=== PATIENT | female | born 1955 | race Caucasian/White ===

== ENCOUNTER → 2016-07-17 | Outpatient (CLI) | payer OTHER ==
[~2016-07-17] MED LIST: ALBU1AER9 INH; CALC600T9 PO; EFFSR150 PO; ESOM20CA PO; ETOD500T95 PO; FEXO1TAB49 PO; LEVO50TA6 PO; MISCTAB30 PO; NSNN50; RIZA10TA18 PO; SIMV20TA2 PO; ZOLE5INJ INJ
--- NOTE | 2016-07-17 10:55 | DIAGNOSTIC IMAGING REPORT ---
LUMBAR SPINE CT CT DOSE: 602.08 mGycm HISTORY: Pain neuropathy TECHNIQUE: Multiaxial CT images of the lumbar spine were performed and reformatted in the sagittal and coronal plane without the use of contrast. COMPARISON: 04/17/2015 FINDINGS: There are findings consistent with laminectomy and fusion at L4-L5 and L5-S1. Compared to the prior image intensifier images there appears to be partial bony resorption the superior endplate of L5 and inferior endplate of L4 1 disc spacer is present at this level. There is slight grade 1 anterolisthesis of L5 on S1 unchanged from the prior image intensifier projections. Mild bony resorption about the disc spacer at L5-S1 is also present. The metallic hardware appears to be intact. There is a very subtle loosening about the interpedicular screws at the L4 level. This is not seen at L5 or S1. Vertebral body stature is otherwise normal throughout. All remaining intervertebral disc spaces are well-preserved.. IMPRESSION: 1. Findings consistent with partial bony resorption of the endplates adjacent to the disc spaces L4-L5 and to a lesser extent L5-S1. 2. Potential early loosening of interpedicular screws at L3. 3. Study is otherwise unremarkable on a postoperative basis Electronically signed by: Yuriy Blue M.D. 07/17/2016 10:54 AM Dictated Date/Time: 07/17/2016 10:48 AM
== END | disposition home or self-care (01) ==
LOC: C.CTS 10:22
PROVIDERS: ATTEND Orthopaedic Surgery Orthopaedic Surgery of the Spine
DX: M54.5 Low back pain (principal)

== ENCOUNTER → 2016-08-22 | Outpatient (CLI) | payer OTHER ==
--- NOTE | 2016-08-22 11:42 | DIAGNOSTIC IMAGING REPORT ---
LEFT FOOT MIN 3 VIEWS ROUTINE CLINICAL HISTORY: Acute left foot pain following injury. COMPARISON: None FINDINGS: There is an oblique mildly displaced fracture through the mid to distal shaft and head of the left fifth metatarsal. Tarsometatarsal joints are intact. No additional acute fractures are present. 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 IMPRESSION: Acute mildly displaced oblique fracture of the mid to distal shaft and head of the left fifth metatarsal. Electronically signed by: Joe Ramesh M.D. 08/22/2016 11:40 AM Dictated Date/Time: 08/22/2016 11:39 AM
== END | disposition home or self-care (01) ==
LOC: C.RAD1850 11:24
PROVIDERS: ATTEND Family Medicine
DX: S92.352A Displaced fracture of fifth metatarsal bone, left foot, initial encounter for closed fracture (principal); X58.XXXA Exposure to other specified factors, initial encounter

== ENCOUNTER → 2016-09-25 | Outpatient (CLI) | payer OTHER ==
--- NOTE | 2016-09-25 15:21 | DIAGNOSTIC IMAGING REPORT ---
RIGHT SECOND FINGER 3 VIEWS CLINICAL HISTORY: Right finger pain. FINDINGS: 3 views of the right second finger are obtained. No prior studies are available for comparison at the time of dictation. The skeletal structures appear osteopenic. No fracture is seen. Minimal osteoarthritic change is noted at the distal interphalangeal joint. The second metacarpophalangeal and proximal interphalangeal joints are well-maintained. No erosive disease is identified. Mild soft tissue swelling is seen in the distal finger. IMPRESSION: 1. No acute bony abnormality is seen in the right second finger. 2. Mild osteoarthritic change is noted in the distal interphalangeal joint with associated overlying soft tissue tissue swelling. Electronically signed by: Steve Méndez M.D. 09/25/2016 3:19 PM Dictated Date/Time: 09/25/2016 3:18 PM
== END | disposition home or self-care (01) ==
LOC: C.RAD1850 14:47
PROVIDERS: ATTEND Nurse Practitioner
DX: M79.646 Pain in unspecified finger(s) (principal)

== ENCOUNTER → 2016-10-24 | Outpatient (CLI) | payer OTHER | END | disposition home or self-care (01) | LOC: C.MAMM 12:42 | PROVIDERS: ATTEND Internal Medicine Rheumatology | DX: M85.89 Other specified disorders of bone density and structure, multiple sites (principal) ==

== ENCOUNTER → 2017-05-06 | Outpatient (CLI) | payer OTHER | END | disposition home or self-care (01) | LOC: C.PAPS 15:29 | PROVIDERS: ATTEND Obstetrics & Gynecology | DX: Z01.419 Encounter for gynecological examination (general) (routine) without abnormal findings (principal) ==

== ENCOUNTER 2019-07-02 08:06 | Inpatient (IN) ==
--- NOTE | 2019-06-17 14:21 | PAT Medication Instructions ---
Medication Instructions Date of Service June 17, 2019 Home Medications Medication Instructions Recorded albuterol sulfate 90 mcg/actuation 2 puffs INH Q4H PRN #8.5 gm 10/08/18 aerosol inhaler potassium citrate 10 mEq (1,080 10 meq PO BID #90 tab 03/18/19 mg) tablet,extended release simvastatin 20 mg tablet 20 mg PO HS #90 tab 04/04/19 albuterol sulfate 90 mcg/actuation aerosol inhaler 2 puffs INH Q4H PRN calcium carbonate 500 mg (1,250 mg)-vitamin D3 400 unit tablet 1 tab PO BID hydrocodone 10 mg-chlorpheniramine 8 mg/5 mL oral susp extend.rel 12hr 5 ml PO Q12H PRN mometasone 50 mcg/actuation nasal spray 2 sprays INTRANASAL HS cholecalciferol (vitamin D3) 1,000 units PO HS lisinopril 5 mg PO QAM rizatriptan [Maxalt] 10 mg PO UD PRN venlafaxine [Effexor XR] 150 mg PO HS potassium citrate 10 mEq (1,080 mg) tablet,extended release 10 meq PO BID simvastatin 20 mg tablet 20 mg PO HS celecoxib 100 mg capsule 200 mg PO BID glucosamine-chondroitin [Osteo Bi-Flex] 1 tab PO BID levothyroxine 50 mcg PO QAM pantoprazole [Protonix] 40 mg PO BID fluticasone propionate [Flovent HFA] 2 puff INHALATION BID PRN loratadine 10 mg PO QPM [id number]-adrq-FA-lutein [Multivitamin Women 50 Plus] 1 tab PO QPM trazodone 50 mg PO DAILY PRN ASK your surgeon for instructions celecoxib 100 mg capsule 200 mg PO BID STOP taking 2 weeks before surgery If surgery is within 2 weeks, stop taking as soon as possible. glucosamine-chondroitin [Osteo Bi-Flex] 1 tab PO BID DO NOT take the morning of surgery calcium carbonate 500 mg (1,250 mg)-vitamin D3 400 unit tablet 1 tab PO BID hydrocodone 10 mg-chlorpheniramine 8 mg/5 mL oral susp extend.rel 12hr 5 ml PO Q12H PRN lisinopril 5 mg PO QAM potassium citrate 10 mEq (1,080 mg) tablet,extended release 10 meq PO BID Take morning of surgery With a small sip of water, OTHERWISE NOTHING TO EAT OR DRINK AFTER MIDNIGHT: albuterol sulfate 90 mcg/actuation aerosol inhaler 2 puffs INH Q4H PRN (if needed, and bring with you to the hospital) rizatriptan [Maxalt] 10 mg PO UD PRN levothyroxine 50 mcg PO QAM pantoprazole [Protonix] 40 mg PO BID fluticasone propionate [Flovent HFA] 2 puff INHALATION BID PRN trazodone 50 mg PO DAILY PRN Take evening before surgery albuterol sulfate 90 mcg/actuation aerosol inhaler 2 puffs INH Q4H PRN (if needed) calcium carbonate 500 mg (1,250 mg)-vitamin D3 400 unit tablet 1 tab PO BID hydrocodone 10 mg-chlorpheniramine 8 mg/5 mL oral susp extend.rel 12hr 5 ml PO Q12H PRN (if needed) mometasone 50 mcg/actuation nasal spray 2 sprays INTRANASAL HS cholecalciferol (vitamin D3) 1,000 units PO HS rizatriptan [Maxalt] 10 mg PO UD PRN (if needed) venlafaxine [Effexor XR] 150 mg PO HS potassium citrate 10 mEq (1,080 mg) tablet,extended release 10 meq PO BID simvastatin 20 mg tablet 20 mg PO HS pantoprazole [Protonix] 40 mg PO BID fluticasone propionate [Flovent HFA] 2 puff INHALATION BID PRN (if needed) loratadine 10 mg PO QPM [id number]-ivf-dehm-FA-lutein [Multivitamin Women 50 Plus] 1 tab PO QPM trazodone 50 mg PO DAILY PRN (if needed) Other Notes If you have any questions please call us at [phone] or [phone] or [phone] or [phone]
--- NOTE | 2019-06-18 11:12 | Anesthesiology Consultation ---
Date of Service June 18, 2019 Assessment & Plan (1) Encounter for pre-operative examination: Chart Review Chart Review: Acceptable Risk for Surgery and Patient seen in Pre Admission Testing Teaching & Discussion Instructed NPO after midnight before surgery, except medications with 15 cc of water. Medication instructions provided according to the PAT guidelines. History Surgery Operation Date: 07/02/19 10:25 Proposed Procedures p L2-L3 Decompression and Fusion, L3-L5 Hardware Removal, Spinal Cord Monitoring - Bandar Chapin DO Height/Weight Height: 5 ft 2 in Weight: 79.8 kg Allergies Allergy/AdvReac Type Severity Reaction Status Date / Time Penicillins Allergy Mild SWELLING Verified 06/09/19 14:55 pregabalin Allergy Unknown SWELLING Verified 06/09/19 14:55 Sulfa (Sulfonamide Allergy Unknown HIVES Verified 06/09/19 14:55 Antibiotics) codeine AdvReac Mild PROJECTILE Verified 06/09/19 14:55 VOMITING Medications Home Medications Medication Instructions Recorded Confirmed Last Taken albuterol sulfate 90 mcg/actuation 2 puffs INH Q4H PRN #8.5 gm 10/08/18 06/09/19 04/20/19 aerosol inhaler calcium carbonate 500 mg (1,250 1 tab PO BID 10/08/18 06/09/19 05/20/19 mg)-vitamin D3 400 unit tablet hydrocodone 10 mg-chlorpheniramine 5 ml PO Q12H PRN #120 ml 12/04/18 06/09/19 05/20/19 8 mg/5 mL oral susp extend.rel 12hr mometasone 50 mcg/actuation nasal 2 sprays INTRANASAL HS 12/04/18 06/09/19 05/20/19 spray cholecalciferol (vitamin D3) 1,000 units PO HS 03/11/19 06/09/19 05/20/19 lisinopril 5 mg PO QAM 03/11/19 06/09/19 05/21/19 rizatriptan [Maxalt] 10 mg PO UD PRN 03/11/19 06/09/19 04/20/19 venlafaxine [Effexor XR] 150 mg PO HS 03/11/19 06/09/19 05/20/19 potassium citrate 10 mEq (1,080 10 meq PO BID #90 tab 03/18/19 06/09/19 05/20/19 mg) tablet,extended release simvastatin 20 mg tablet 20 mg PO HS #90 tab 04/04/19 06/09/19 05/20/19 celecoxib 100 mg capsule 200 mg PO BID 04/15/19 06/09/19 05/20/19 glucosamine-chondroitin [Osteo 1 tab PO BID 05/10/19 06/09/19 05/20/19 Bi-Flex] levothyroxine 50 mcg PO QAM 05/10/19 06/09/19 05/21/19 pantoprazole [Protonix] 40 mg PO BID 05/10/19 06/09/19 05/20/19 fluticasone propionate [Flovent 2 puff INHALATION BID PRN 06/09/19 06/09/19 Unknown HFA] loratadine 10 mg PO QPM 06/09/19 06/09/19 Unknown acdmgvjs-vol-gker-FA-lutein 1 tab PO QPM 06/09/19 06/09/19 Unknown [Multivitamin Women 50 Plus] trazodone 50 mg PO DAILY PRN 06/09/19 06/09/19 Unknown Past Medical History Medical History Anxiety and depression Asthma Not using Flovent; using albuterol ~once/month only; season-dependent Environmental allergies GERD (gastroesophageal reflux disease) Hiatal hernia History of anemia Hx of migraines Hyperlipidemia Hypertension Hypothyroidism 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 No daily pain, no pain or problems with opening mouth/jaw. Osteoporosis Peptic ulcer disease Controlled with PPI. Seasonal allergies Spinal stenosis Exercise / Class Metabolic Activity III < 4 Walking/Shop/Light housework (Denies CP or SOB with ambulation on one level; never gets chest pain, +occ SOB with 1 FOS) Past Family History Family History (Updated 06/09/19 @ 15:07 by Margaret Ng RN) Mother Breast cancer Father Myocardial infarction Grandfather (Paternal) No problems noted. Grandmother (Paternal) FHx: diabetes mellitus Grandmother (Maternal) FHx: diabetes mellitus Other Colon cancer Past Surgical History Surgical History Fusion of spine lumbar x2 H/O hand surgery right x2 History of colonoscopy History of esophagogastroduodenoscopy (EGD) History of knee replacement procedure of left knee History of knee replacement procedure of right knee History of repair of rotator cuff right Hx of appendectomy Hx of arthroscopic knee surgery MULTIPLE ON BOTH Hx of LASIK Hx of sinus surgery Hx of tonsillectomy Hx of total hysterectomy Hx of unilateral nephrectomy LEFT - DONATED TO BROTHER Past Anesthesia History No Hx of Anesthesia Complications and No Family Hx of Anesthesia Complications History of PONV No Hx of Motion Sickness and History of PONV (Remote h/o) Social History Smoking Status: Never smoker Do You Dip or Chew Tobacco: No Hx Alcohol Use: No Hx Substance Use: No substance use type: does not use Review of Systems Pt denies any recent chest pain, shortness of breath, palpitations, cough, fever or URI. Physical Exam Vital Signs BP: 144/87 P: 71bpm SPO2: 96% RA T: 97.9 F R: 16 ENMT Mouth: + small oral opening; no dental restorations, no chipped teeth and no loose teeth Thyromental Distance: < 3.5 Finger Breadths (3) Mallampati Class: III Neck normal visual inspection and + short neck; neck extension not limited Respiratory normal respiratory effort Auscultation: lungs clear to auscultation bilaterally Cardiovascular Rate/Rhythm: regular rate and regular rhythm Heart Sounds: no murmur Vessels: no carotid bruit Extremities: no edema Testing Laboratory Results 06/18/19 11:20 06/18/19 11:20 PT 10.3 Seconds (9.0-12.0) 06/18/19 11:20 INR 1.0 (0.9-1.1) 06/18/19 11:20 APTT 29.1 Seconds (21.0-31.0) 06/18/19 11:20 Urine Color Yellow 06/18/19 11:20 Urine Appearance Clear (Clear) 06/18/19 11:20 Urine pH 6.5 (4.5-7.5) 06/18/19 11:20 Ur Specific [place] 1.020 (1.000-1.030) 06/18/19 11:20 Urine Protein Negative (Negative) 06/18/19 11:20 Urine Glucose (UA) Negative (Negative) 06/18/19 11:20 Urine Ketones Negative (Negative) 06/18/19 11:20 Urine Nitrite Negative (Negative) 02/21/20 11:20 Ur Leukocyte Esterase Negative (Negative) 06/18/19 11:20 Blood Type O Positive 06/18/19 11:20 Antibody Screen NEGATIVE 06/18/19 11:20 Electrocardiogram Date: 06/18/19 Findings: + NSR @ (70bpm) Chest X-Ray Date: 06/18/19 Findings: + NAD Echocardiogram Date: 11/17/18 EF: 50-55% Mild concentric LVH. LV systolic function is normal. Grade 1 diastolic dysfunction. No significant valvular disease. Other Testing Event Monitor 10/28-11/26/18 NSR. Symptomatic sinus tachycardia. Symptomatic paroxysmal SVT (8 beats x2). No pauses.
[2019-06-18 12:38] LABS: Appearance Urine Clear (Clear); Bilirubin Urine Negative (Negative); Blood Urine Negative (Negative); Color Urine Yellow; Glucose Urine UA Negative (Negative); Ketones Urine Negative (Negative); Leukocyte Esterase Urine Negative (Negative); Nitrite Urine Negative (Negative); Protein Urine Negative (Negative); Urobilinogen Urine Negative (Negative); pH Urine 6.5 (4.5-7.5)
[2019-06-18 12:39] LABS: Basophils # (auto) 0.03 K/uL (0-0.2); Basophils % (auto) 0.4 %; Eosinophils # (auto) 0.32 K/uL (0-0.5); Eosinophils % (auto) 4.4 %; Hematocrit (blood only) 36.1 % (37-47); Hemoglobin 11.3 g/dL (12.0-16.0); Immature Granulocytes # (auto) 0.02 K/uL (0.00-0.02); Immature Granulocytes % (auto) 0.3 %; Lymphocytes # (auto) 1.99 K/uL (1.2-3.4); Lymphocytes % (auto) 27.5 %; Mean Corpuscular Hemoglobin 29.8 pg (25-34); Mean Corpuscular Hgb Conc 31.3 g/dL (32-36); Mean Corpuscular Volume 95.3 fL (80-100); Mean Platelet Volume 10.6 fL (7.4-10.4); Monocytes # (auto) 0.69 K/uL (0.11-0.59); Monocytes % (auto) 9.5 %; Neutrophils # (auto) 4.18 K/uL (1.4-6.5); Neutrophils % (auto) 57.9 %; Platelet Count 359 K/uL (130-400); RDW Coefficient of Variation 13.1 % (11.5-14.5); Red Blood Count 3.79 M/uL (4.2-5.4); White Blood Count 7.23 K/uL (4.8-10.8)
--- NOTE | 2019-06-18 12:41 | XRay Report ---
TWO VIEW CHEST CLINICAL HISTORY: Preoperative examination. FINDINGS: PA and lateral chest radiographs are compared to study dated 10/28/2014. The cardiomediastina l silhouette is unremarkable. The lungs and pleural spaces are clear. There is no pneumothorax. The skeletal structures are osteopenic. The bony thorax appears intact. Fusion hardware is noted in the l umbar spine. IMPRESSION: No active disease in the chest. ACT 112: Negative or not required by law. Electronically signed by: Steve Méndez M.D. 06/18/2019 12:39 PM
[2019-06-18 12:44] LABS: Partial Thromboplastin Ratio 1.1; Partial Thromboplastin Time 29.1 Seconds (21.0-31.0); Prothrombin Time 10.3 Seconds (9.0-12.0)
[2019-06-18 12:51] LABS: BUN Creatinine Ratio 15.7 (10-20); Calcium 10.1 mg/dl (8.5-10.1); Creatinine Clr Calc Pharmacy 53.5 ml/min; Est GFR (African American) 65.8; Est GFR (Non-African American) 56.7; Potassium 3.9 mmol/L (3.5-5.1)
--- NOTE | 2019-06-18 22:10 | Electrocardiogram Report ---
Test Reason : Blood Pressure : / mmHG Vent. Rate : 070 BPM Atrial Rate : 070 BPM P-R Int : 142 ms QRS Dur : 084 ms QT Int : 368 ms P-R-T Axes : 038 056 062 degrees QTc Int : 397 ms Normal sinus rhythm Normal ECG When compared with ECG of 21-MAY-2017 15:07, No significant change was found Confirmed by Gadiel Zheng ([id number]) on 06/18/2019 10:09:28 PM Referred By: Bandar Chapin Confirmed By:Gadiel Zheng
[~2019-07-02 08:06] MED LIST changes: -ALBU1AER9 INH; -CALC600T9 PO; +CLINDAMYCIN 600 MG/54 ML BAG IV SCH; -EFFSR150 PO; -ESOM20CA PO; -ETOD500T95 PO; -FEXO1TAB49 PO; -LEVO50TA6 PO; +LR 15ML/HR IV SCH; -MISCTAB30 PO; -NSNN50; -RIZA10TA18 PO; -SIMV20TA2 PO; -ZOLE5INJ INJ
[2019-07-02] MEDS ORDERED: MIDAZOLAM HCL 1 MG/ML 2ML VIAL ONE (09:09)
[2019-07-02] MEDS ORDERED: fentaNYL citrate 100 MCG/2 ML VIAL ONE (09:09)
--- NOTE | 2019-07-02 10:35 | History & Physical Bridge Note ---
Date of Service July 02, 2019 History & Physical Bridge Note I have examined the patient, reviewed the History & Physical and in the interval since the performance of the History & Physical I have noted the following changes of clinical significance: no changes noted
--- NOTE | 2019-07-02 10:36 | History & Physical Report ---
Date of Service July 02, 2019 Assessment & Plan (1) Lumbar stenosis with neurogenic claudication: L2-L3 decompression fusion, L3-L5 hardware removal Present on Admission?: Yes History of Present Illness Chief Complaint: Back and bilateral leg pain Primary Care Provider: May Haynes MD This is a 63-year-old female well-known to me the presents with back and bilateral leg pain after failing extensive course of nonoperative care is here for surgical invention. Allergies Allergy/AdvReac Type Severity Reaction Status Date / Time Penicillins Allergy Mild SWELLING Verified 07/02/19 09:02 pregabalin Allergy Unknown SWELLING Verified 07/02/19 09:02 Sulfa (Sulfonamide Allergy Unknown HIVES Verified 07/02/19 09:02 Antibiotics) codeine AdvReac Mild PROJECTILE Verified 07/02/19 09:02 VOMITING Home Medications Home Medications Medication Instructions Recorded Confirmed Type albuterol sulfate 90 mcg/actuation 2 puffs INH Q4H PRN #8.5 gm 10/08/18 07/02/19 Rx aerosol inhaler calcium carbonate 500 mg (1,250 1 tab PO BID 10/08/18 07/02/19 History mg)-vitamin D3 400 unit tablet hydrocodone 10 mg-chlorpheniramine 5 ml PO Q12H PRN #120 ml 12/04/18 07/02/19 History 8 mg/5 mL oral susp extend.rel 12hr mometasone 50 mcg/actuation nasal 2 sprays INTRANASAL HS gm 12/04/18 07/02/19 History spray cholecalciferol (vitamin D3) 1,000 units PO HS 03/11/19 07/02/19 History lisinopril 5 mg PO QAM 03/11/19 07/02/19 History rizatriptan [Maxalt] 10 mg PO UD PRN 03/11/19 07/02/19 History venlafaxine [Effexor XR] 150 mg PO HS 03/11/19 06/23/19 History potassium citrate 10 mEq (1,080 10 meq PO BID #90 tab 03/18/19 07/02/19 Rx mg) tablet,extended release simvastatin 20 mg tablet 20 mg PO HS #90 tab 04/04/19 06/23/19 Rx celecoxib 100 mg capsule 200 mg PO BID 04/15/19 07/02/19 History glucosamine-chondroitin [Osteo 1 tab PO BID 05/10/19 07/02/19 History Bi-Flex] levothyroxine 50 mcg PO QAM 05/10/19 07/02/19 History pantoprazole [Protonix] 40 mg PO BID 05/10/19 07/02/19 History loratadine 10 mg PO QPM 06/09/19 07/02/19 History ukjsawyt-yja-jkhk-FA-lutein 1 tab PO QPM 06/09/19 07/02/19 History [Multivitamin Women 50 Plus] trazodone 50 mg PO DAILY PRN 06/09/19 06/23/19 History Past Med/Surg History Medical History Anxiety and depression Asthma Not using Flovent; using albuterol ~once/month only; season-dependent Environmental allergies GERD (gastroesophageal reflux disease) Hiatal hernia History of anemia Hx of migraines Hyperlipidemia Hypertension Hypothyroidism 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 No daily pain, no pain or problems with opening mouth/jaw. Osteoporosis Peptic ulcer disease Controlled with PPI. Seasonal allergies Spinal stenosis Surgical History Fusion of spine lumbar x2 H/O hand surgery right x2 History of colonoscopy History of esophagogastroduodenoscopy (EGD) History of knee replacement procedure of left knee History of knee replacement procedure of right knee History of repair of rotator cuff right Hx of appendectomy Hx of arthroscopic knee surgery MULTIPLE ON BOTH Hx of LASIK Hx of sinus surgery Hx of tonsillectomy Hx of total hysterectomy Hx of unilateral nephrectomy LEFT - DONATED TO BROTHER Social History Preferred Language: Hungarian Communication Ability: Effective Pool Finisher Required: No Beliefs That Will Affect Care: None marital status: Single Current Living Situation: Spouse and Parent current occupational status: retired Feels Safe at Home: Yes Safety Concerns: Feels Safe At This Time Smoking Status: Never smoker Do You Dip or Chew Tobacco: No ; Second Hand Exposure: No ; Hx Alcohol Use: No Hx Substance Use: No Childhood Exposure to Second-Hand Smoke: No Dental Care, Regularly: Yes Physical Activity Frequency: 1-2 Times per Week Physical Activity Frequency Comment: walking Physical Exam Physical Exam: Patient is alert and oriented neurologically intact. Results & Data Vital Signs (Past 12 Hours) Vital Signs Temp Pulse Resp BP Pulse Ox 07/02/19 09:09 37.1 C 85 18 119/89 97
[2019-07-02] MEDS ORDERED: BUPIVACAINE/EPINEPHRINE 0.5% MPF 1:200,000 10 ML VIAL ONE (10:51)
[2019-07-02] MEDS ORDERED: BACITRACIN INJ 50,000 UNIT VIAL ONE (10:51)
[2019-07-02] MEDS ORDERED: PROMETHAZINE HCL 12.5 MG in SODIUM CHLORIDE 0.9% 50 ML IV PRN ×2 (10:54→14:46)
[2019-07-02] MEDS ORDERED: LABETALOL HCL IV 5 MG/ML 20ML IV PRN (10:54)
[2019-07-02] MEDS ORDERED: ONDANSETRON INJ 2 MG/ML 2 ML VIAL IV PRN ×2 (10:54→14:46)
[2019-07-02] MEDS ORDERED: FLUMAZENIL 0.1 MG/1 ML 10 ML VIAL IV PRN (10:54)
[2019-07-02] MEDS ORDERED: NALOXONE HCL 0.4 MG/1 ML VIAL/CARP IV PRN ×2 (10:54→14:46)
[2019-07-02] MEDS ORDERED: ATROPINE SULFATE 0.1 MG/ML 10ML SYR IV PRN (10:54)
[2019-07-02] MEDS ORDERED: ePHEDrine sulfate 50 MG/ML AMP IV PRN (10:54)
[2019-07-02] MEDS ORDERED: PROPOFOL IV EMULSION 10 MG/ML 20 ML VIAL IV ONE (11:23)
[2019-07-02] MEDS ORDERED: PHENYLEPHRINE 100MCG/ML 5ML SYR ONE (11:23)
[2019-07-02] MEDS ORDERED: DEXAMETHASONE SOD INJ 4 MG/ML VIAL ONE (11:23)
[2019-07-02] MEDS ORDERED: HYDROmorphone INJ 2 MG/ML SYR/VIAL ONE (11:23)
[2019-07-02] MEDS ORDERED: LIDOCAINE HCL 2% 2 ML VIAL/AMP(20MG/ML) INFIL ONE (11:23)
[2019-07-02] MEDS ORDERED: ONDANSETRON INJ 2 MG/ML 2 ML VIAL ONE (11:23)
[2019-07-02] MEDS ORDERED: NEOSTIGMINE METHYLSULFATE 1 MG/ML 10ML VIAL ONE (11:23)
[2019-07-02] MEDS ORDERED: ROCURONIUM BROMIDE 10 MG/ML 5 ML VIAL ONE (11:23)
[2019-07-02] MEDS ORDERED: GLYCOPYRROLATE 0.2 MG/ML VIAL ONE (11:23)
[2019-07-02] MEDS ORDERED: LARYING-O-JET KIT (LTA) ONE (11:23)
[2019-07-02] MEDS ORDERED: FLOSEAL HEMOSTATIC MATRIX 10ML TOP ONE (12:06)
--- NOTE | 2019-07-02 12:41 | Operative Report ---
Post Operative Report Pre & Post Diagnosis Operation Date: 07/02/19 10:25 Pre-Op Diagnosis: Lumbar Intervertebral Disc Displacement Spinal stenosis L2-3 Post-Op Diagnosis: Same I identified the patient and participated in the time-out.: Yes Procedure Operation Date: 07/02/19 10:25 Actual Procedures #1 removal of posterior instrumentation L3-4, L4-5. #2 exploration of fusion L3-4, L4-5. #3 lumbar decompression with bilateral medial facetectomies and foraminotomies L2-3. #4 posterior spinal fusion L2-3. #5 placement posterior instrumentation L2-3. #6 interbody fusion L2-3. #7 placement of peek cage 8 x 22 mm at L2-3. #8 placement locally harvested morselized autograft in the posterior lateral gutters. #9 placement infuse collagen sponge, master graft in the posterior gutters and ostial amp and interbody space. Surgeon Bandar Chapin, [employer] Source Intelligence Analyst Mitch Greco Estimated Blood Loss 200 Findings Consistent with Post-Op Diagnosis Specimens None Indications This is a 63-year-old female known to me the presents with above-mentioned diagnosis after failing extensive course of nonoperative care is here for amezcua rgical intervention. Description of Procedure Patient was met with identified informed consent obtained. Patient was then taken to the operative suite underwent intubation placed in prone position the Temo table on top of the Gilmer frame. All bony prominences well-padded eyes inspected to ensure no external pressure placed upon. This point the lumbar spine is prepped and draped in a sterile fashion. Sharp dissection with the assistance of Bovie cautery was performed down to and exposing the lamina and transverse processes of L to and instrumentation at L3-L4 and L5 bilaterally. Then proceeded move the hardware at L3-L4-L5 bilaterally exploring the fusion mass noting it to be intact. Informed complete laminectomy of L2 including kelley ateral medial facetectomies and foraminotomies addressing severe spinal stenosis. Pedicle screws were then placed in L2 and L3 bilaterally with assistance of fluoroscopy and appropriate size daphne placed. By way of a transforaminal approach on the right complete discectomy was performed endplates curetted to subcortical bleeding bone and a 8 x 22 mm peek cage filled osteo- bone graft tapped in position. The rods were then locked in final position bilaterally. The transverse processes of L2 and L3 burred to subcortical bleeding bone. Infuse collagen sponge master graft local autograft placed in the posterior lateral gutters. 15 round YADI drain inserted. The incision was then closed with 1 Vicryl in the fascia 2-0 Vicryl subcutaneously and 4 Monocryl for final skin closure. Steri-Strip sterile dressings placed. Patient will continue to PACU stable disc. Please note spinal cord monitoring was utilized that the procedure no changes noted. Lastly Mitch record was present throughout the entire procedure involved the patient positioning complex portions of the surgery and final skin closure. I attest to the content of the Intraoperative Record and any orders documented therein. Any exceptions are noted below.
--- NOTE | 2019-07-02 12:52 | Fluoroscopy Report ---
FL lumbar spine 2-3V CLINICAL HISTORY: 63 years-old Female presenting with L2-L3 DECOMP/FUSION, L3-L5 HARDWARE REMOVAL. TECHNIQUE: 2 fluoroscopic image(s) recorded as part of an intraoperative procedure. COMPARISON: MR from 04/16/2019. FINDINGS/IMPRESSION: Posterior bilateral transpedicular screw and daphne fixation at L2-3. Prior transpedicular screws spanni ng from L3 to L5 at the lower lumbar spine has been removed. Interbody spacers again noted from L3-4 through L5-S1 with a new interbody spacer at L2-3. There may be slight retrolisthesis of L2 on L3. La minectomy defects noted from L2 inferiorly. Please see surgical report for further details. Fluoroscopy dosage (mGy): 8.40. Fluoroscopy time: 9.9 seconds. Number or time of high level fluoroscopy (HLF), digital spot, or digital subtraction images: 0. ACT 112: Negative or not required by law. Results electronically sent 07/02/2019 12:51 PM to: Bandar Chapin DO Electronically signed by: Francis Lorenzo M.D. 07/02/2019 12:51 PM
[2019-07-02] MEDS: fentaNYL citrate 100 MCG/2 ML VIAL IV PRN ×4 (13:15→13:31)
[2019-07-02] MEDS: HYDROmorphone INJ 1 MG/ML SYRINGE IV PRN ×4 (13:39→13:54)
[2019-07-02 13:41] LABS: Hematocrit (blood only) 31.5 % (37-47); Hemoglobin 10.1 g/dL (12.0-16.0)
--- NOTE | 2019-07-02 14:29 | Anesthesiology Progress Note ---
Date of Service July 02, 2019 Anesthesia Post Procedure Vital Signs Vital Signs: Temp Pulse Pulse Resp BP BP Pulse Ox 07/02/19 14:24 89 17 108/58 L 100 07/02/19 14:15 87 14 109/83 96 07/02/19 14:05 36.2 C L 84 14 102/72 100 07/02/19 13:55 96 H 18 135/74 99 07/02/19 13:45 90 19 132/82 100 07/02/19 13:35 84 17 129/78 100 07/02/19 13:25 92 H 18 145/99 H 100 07/02/19 13:15 98 H 13 121/83 100 07/02/19 13:06 36.6 C 119 H 20 154/88 H 100 07/02/19 09:09 37.1 C 85 18 119/89 97 Pain Intensity Medial Back: Pain Intensity: 4 Transfer of Care Handoff Completed per policy Notes Mental Status: alert / awake / arousable Patient Amnestic to Procedure: Yes Nausea / Vomiting: adequately controlled Pain: adequately controlled Airway Patency, RR, SpO2: stable & adequate BP & HR: stable & adequate Hydration State: stable & adequate Anesthetic Complications: no major complications apparent
[2019-07-02] MEDS ORDERED: DO NOT ADMINISTER PNEUMOCOCCAL VACCINE PRN (14:46)
[2019-07-02] MEDS ORDERED: LORazepam 0.5 MG TAB PO PRN (14:46)
[2019-07-02] MEDS ORDERED: ACETAMINOPHEN 1,000 MG/100 ML VIAL IV PRN (14:46)
[2019-07-02] MEDS ORDERED: ACETAMINOPHEN 500 MG TAB PO PRN (14:46)
[2019-07-02] MEDS ORDERED: RIZATRIPTAN BENZOATE 10 MG TAB PO PRN (14:46)
[2019-07-02] MEDS ORDERED: SOD PHOSPHATE/SOD BIPHOSPHATE ENEMA 132 ML BTL PR PRN (14:46)
[2019-07-02] MEDS ORDERED: FAMOTIDINE 20 MG TAB PO PRN (14:46)
[2019-07-02] MEDS ORDERED: HYDROmorphone INJ 0.5 MG/0.5 ML SYR IV PRN (14:46)
[2019-07-02] MEDS ORDERED: ALBUTEROL HFA INHALER 8.5 GM INH PRN (14:46)
[2019-07-02] MEDS ORDERED: bisacodyL 10 MG SUPP PR PRN (14:46)
[2019-07-02] MEDS ORDERED: ONDANSETRON 4 MG OD TAB PO PRN (14:46)
[2019-07-02] MEDS ORDERED: HYDROmorphone INJ 1 MG/ML SYRINGE IV PRN (14:46)
[2019-07-02] MEDS ORDERED: MAGNESIUM HYDROXIDE SUSP 30 ML UDC PO PRN (14:46)
[2019-07-02] MEDS ORDERED: METOCLOPRAMIDE HCL INJ 5 MG/ML 2 ML VIAL IV PRN (14:46)
[2019-07-02] MEDS ORDERED: TRAZODONE HCL 50 MG TAB PO PRN (14:46)
[2019-07-02] MEDS ORDERED: LORazepam 0.5 MG/1 ML VIAL IV PRN (14:46)
[2019-07-02] MEDS ORDERED: DO NOT ADMINISTER FLU VACCINE PRN (14:46)
[2019-07-02] MEDS: LACTATED RINGER'S 1,000 ML IV SCH (14:50)
[2019-07-02] MEDS: OXYCODONE HCL IR 5 MG TAB (IMMEDIATE RELEASE) PO PRN ×2 (15:46→22:14)
[2019-07-02] MEDS: KETOROLAC TROMETHAMINE 15 MG/ML VIAL IV SCH ×2 (15:48→22:09)
--- NOTE | 2019-07-02 16:46 | Hospitalist Consultation ---
Date of Consultation July 02, 2019 Assessment & Plan (1) Lumbar stenosis with neurogenic claudication: - S/p lumbar intravertebral disc displacement, spinal stenosis L2-3 with removal of posterior instrumentation previously placed, lumbar decompression with bilateral medial facetectomies and foraminotomies posterior spinal fusion. -Pain management and bowel regimen per primary team -PT/OT -No chemical prophylaxis in the setting of spinal surgery -Would recommend discontinuing Celebrex with patient's recent history of having gastric ulcers and requiring high-dose PPI, consider transition to different pain medication. Patient notes that gabapentin gave her side effects the last time she was on them although has difficulty expressing exactly what it made her feel. (2) Hypertension: -Continue lisinopril 5 mg every morning (3) Hyperlipidemia: -Continue simvastatin 20 mg at bedtime (4) Asthma, mild intermittent: -Albuterol inhaler as needed, well controlled - Cont mometazone 2 sprays daily (5) GERD without esophagitis: -Also with history of peptic ulcer disease, recently had EGD completed in May 2019 which showed resolvent of ulcerations -Continue pantoprazole 40 mg bid -Recommend discontinuation of Celebrex (6) Hypothyroidism: -Continue levothyroxine 50 mcg daily (7) Migraine: -Continue Maxalt as needed (8) Osteoporosis: (9) Vitamin D deficiency: -Continue supplementation with vitamin D and glucosamine chondroitin, pain control as per primary team (10) Anxiety and depression: -Continue Effexor 150 mg at bedtime, trazodone 50 mg daily prn (11) DVT prophylaxis: -Teds, SCDs, no chemical prophylaxis CODE STATUS full code Disposition: Patient likely able to be discharged in 2 days per primary team Thank you for involving us in the care of Ms. Duarte. Please do not hesitate to call with questions or concerns. Medicine will follow along. Supervising Physician Co-Signing Physician Notes I have seen and examined patient with Chana Valle PA-C and I agree with the assessment and plan. History of Present Illness Attending Physician: Bandar Chapin, DO History of Present Illness This is a 63 yo F with PMHx of HTN, HLD, asthma, history of peptic ulcer disease, GERD, hiatal hernia, anemia, migraines, hypothyroidism, spinal stenosis, anxiety and depression who presents for elective lumbar intervertebral disc displacement and spinal stenosis L2-[address] Chapin on 07/02/2019. She is doing well overall. Patient notes that she has been taking Celebrex prior to this for pain relief and also notes was diagnosed with gastric ulcerations in March, where she was placed on high-dose pantoprazole, then had follow-up EGD done which showed improvement of these, she understands that it would be in her best interest to stop Celebrex as well as reduction in pantoprazole after surgery and titrate down on pain medication. She is tolerating oral intake without any difficulty, no nausea, no vomiting. Patient is moving her lower extremities bilaterally without any difficulty, numbness has pretty much resolved. Guzman catheter is in. Patient plans to get up and sit in a chair bedside later this evening. Allergies Allergy/AdvReac Type Severity Reaction Status Date / Time Penicillins Allergy Mild SWELLING Verified 07/02/19 09:02 pregabalin Allergy Unknown SWELLING Verified 07/02/19 09:02 Sulfa (Sulfonamide Allergy Unknown HIVES Verified 07/02/19 09:02 Antibiotics) codeine AdvReac Mild PROJECTILE Verified 07/02/19 09:02 VOMITING Home Medications Home Medications Medication Instructions Recorded Confirmed Type albuterol sulfate 90 mcg/actuation 2 puffs INH Q4H PRN #8.5 gm 10/08/18 07/02/19 Rx aerosol inhaler calcium carbonate 500 mg (1,250 1 tab PO BID 10/08/18 07/02/19 History mg)-vitamin D3 400 unit tablet hydrocodone 10 mg-chlorpheniramine 5 ml PO Q12H PRN #120 ml 12/04/18 07/02/19 History 8 mg/5 mL oral susp extend.rel 12hr mometasone 50 mcg/actuation nasal 2 sprays INTRANASAL HS gm 12/04/18 07/02/19 History spray cholecalciferol (vitamin D3) 1,000 units PO HS 03/11/19 07/02/19 History lisinopril 5 mg PO QAM 03/11/19 07/02/19 History rizatriptan [Maxalt] 10 mg PO UD PRN 03/11/19 07/02/19 History venlafaxine [Effexor XR] 150 mg PO HS 03/11/19 06/23/19 History potassium citrate 10 mEq (1,080 10 meq PO BID #90 tab 03/18/19 07/02/19 Rx mg) tablet,extended release simvastatin 20 mg tablet 20 mg PO HS #90 tab 04/04/19 06/23/19 Rx celecoxib 100 mg capsule 200 mg PO BID 04/15/19 07/02/19 History glucosamine-chondroitin [Osteo 1 tab PO BID 05/10/19 07/02/19 History Bi-Flex] levothyroxine 50 mcg PO QAM 05/10/19 07/02/19 History pantoprazole [Protonix] 40 mg PO BID 05/10/19 07/02/19 History loratadine 10 mg PO QPM 06/09/19 07/02/19 History buihbizr-zks-vwrp-FA-lutein 1 tab PO QPM 06/09/19 07/02/19 History [Multivitamin Women 50 Plus] trazodone 50 mg PO DAILY PRN 06/09/19 06/23/19 History Patient History Medical History Anxiety and depression Asthma Not using Flovent; using albuterol ~once/month only; season-dependent Environmental allergies GERD (gastroesophageal reflux disease) Hiatal hernia History of anemia Hx of migraines Hyperlipidemia Hypertension Hypothyroidism 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 No daily pain, no pain or problems with opening mouth/jaw. Osteoporosis Peptic ulcer disease Controlled with PPI. 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 Beliefs That Will Affect Care: None marital status: Single Current Living Situation: Spouse and Parent current occupational status: retired Feels Safe at Home: Yes Safety Concerns: Feels Safe At This Time Smoking Status: Never smoker Do You Dip or Chew Tobacco: No ; Second Hand Exposure: No ; Hx Alcohol Use: No Hx Substance Use: No Childhood Exposure to Second-Hand Smoke: No Dental Care, Regularly: Yes Physical Activity Frequency: 1-2 Times per Week Physical Activity Frequency Comment: walking Review of Systems Review of Systems: Constitutional: No fever, sweats or chills Eyes: No diplopia, no worsening or blurred vision ENT: normal hearing, no trouble swallowing Respiratory: No cough, sputum, dyspnea at rest or on exertion Cardiovascular: No chest pain, tightness or palpitations Abdomen: No pain, nausea, vomiting, diarrhea or constipation Musculoskeletal: + Minor back pain, well controlled otherwise no joint pain, calf pain, swelling Neurologic: No weakness, numbness/tingling, or balance problems Psychiatric: No anxiety or depression Skin: No rash or itch Physical Exam Physical Exam: General: awake, alert, no apparent distress, + overweight Head: Normocephalic, atraumatic ENT: PERRL, EOMI, no pharyngeal exudate, mucous membranes moist Chest: Clear to auscultation, on room air, no adventitious breath sounds Cardiac: Regular rate and rhythm, no murmur, no JVD, normal peripheral pulses, good capillary refill Abdominal: NABS x 4 quadrants, soft, nondistended, nontender to palpation, no rebound, guarding or tenderness, + Guzman cath in place draining clear yellow urine Extremities: Normal inspection, no peripheral edema or erythema, calfs nontender to palpation Psych: Normal mood and affect Neuro: AAO x 3, no gross motor deficits, speech is clear, no peripheral sensory deficits Skin: no rash or erythema Results & Data ([facility]) Vital Signs (Past 12 Hours) Vital Signs Temp Pulse Pulse Resp BP BP Pulse Ox 07/02/19 16:21 36.8 C 87 16 103/67 91 07/02/19 15:30 36.9 C 89 16 98/57 L 90 07/02/19 15:00 37.1 C 93 H 16 105/69 99 07/02/19 14:35 37.2 C 92 H 16 109/73 98 07/02/19 14:24 89 17 108/58 L 100 07/02/19 14:15 87 14 109/83 96 07/02/19 14:05 36.2 C L 84 14 102/72 100 07/02/19 13:55 96 H 18 135/74 99 07/02/19 13:45 90 19 132/82 100 07/02/19 13:35 84 17 129/78 100 07/02/19 13:25 92 H 18 145/99 H 100 07/02/19 13:15 98 H 13 121/83 100 07/02/19 13:06 36.6 C 119 H 20 154/88 H 100 07/02/19 09:09 37.1 C 85 18 119/89 97 PG Care Time/CCT Total # of Minutes Spent Total Time Spent with Patient: Total time spent is greater than 50% in coordination of care (as documented) at patient's floor/unit and/or counseling patient: Coding Level of Care Code 30471 Inpt Consult Level 3 Diagnoses Lumbar stenosis with neurogenic claudication M48.062 Hypertension I10 Hyperlipidemia E78.5 Asthma, mild intermittent J45.20 GERD without esophagitis K21.9 Hypothyroidism E03.9 Migraine G43.909 Osteoporosis M81.0 Vitamin D deficiency E55.9 Anxiety and depression F41.9; F32.9 DVT prophylaxis Z29.9
[2019-07-02] MEDS: CLINDAMYCIN 600 MG in DEXTROSE 5% 50 ML IV SCH (19:29)
[2019-07-02] MEDS: FLUTICASONE PROPIONATE NA SPR 16 GM BTL SCH (20:48)
[2019-07-02] MEDS: DOCUSATE SODIUM/SENNA 50/8.6MG TAB PO SCH (20:49)
[2019-07-02] MEDS: PANTOprazole 40 MG TAB PO SCH (20:49)
[2019-07-02] MEDS: CEROVITE ADV FORMULA TAB PO SCH (20:49)
[2019-07-02] MEDS: POTASSIUM CITRATE 10 MEQ TAB PO SCH (20:49)
[2019-07-02] MEDS: LORATADINE 10 MG TAB PO SCH (20:49)
[2019-07-02] MEDS: VENLAFAXINE HCL XR 150 MG CAPXR PO SCH (20:49)
[2019-07-02] MEDS: CALCIUM 600MG + VIT D 400 IU TAB PO SCH (20:50)
[2019-07-02] MEDS: CHOLECALCIFEROL 1,000 UNITS 25 MCG TAB PO SCH (20:50)
[2019-07-02] MEDS: SIMVASTATIN 20 MG TAB PO SCH (20:50)
[2019-07-02] MEDS: ALUMINUM/MAGNESIUM SUSP 30 ML UDC PO PRN (22:14)
[2019-07-03] MEDS: LACTATED RINGER'S 1,000 ML IV SCH (00:59)
[2019-07-03] MEDS: KETOROLAC TROMETHAMINE 15 MG/ML VIAL IV SCH ×2 (03:13→10:26)
[2019-07-03] MEDS: CLINDAMYCIN 600 MG in DEXTROSE 5% 50 ML IV SCH (03:13)
[2019-07-03] MEDS: LEVOTHYROXINE SODIUM 50 MCG TABLET PO SCH (05:53)
[2019-07-03] MEDS: POLYETHYLENE (MIRALAX) 17 GM PACK PO SCH ×4 (05:53→23:08)
[2019-07-03 06:12] LABS: Basophils # (auto) 0.01 K/uL (0-0.2); Basophils % (auto) 0.1 %; Hematocrit (blood only) 25.8 % (37-47); Hemoglobin 8.4 g/dL (12.0-16.0); Immature Granulocytes # (auto) 0.05 K/uL (0.00-0.02); Immature Granulocytes % (auto) 0.4 %; Lymphocytes # (auto) 1.51 K/uL (1.2-3.4); Lymphocytes % (auto) 11.1 %; Mean Corpuscular Hemoglobin 29.9 pg (25-34); Mean Corpuscular Hgb Conc 32.6 g/dL (32-36); Mean Corpuscular Volume 91.8 fL (80-100); Mean Platelet Volume 9.3 fL (7.4-10.4); Monocytes # (auto) 1.05 K/uL (0.11-0.59); Monocytes % (auto) 7.7 %; Neutrophils # (auto) 10.96 K/uL (1.4-6.5); Neutrophils % (auto) 80.7 %; Platelet Count 303 K/uL (130-400); RDW Coefficient of Variation 12.9 % (11.5-14.5); RDW Standard Deviation 43.7 fL (36.4-46.3); Red Blood Count 2.81 M/uL (4.2-5.4); White Blood Count 13.58 K/uL (4.8-10.8)
[2019-07-03 06:48] LABS: BUN Creatinine Ratio 19.6 (10-20); Calcium 8.6 mg/dl (8.5-10.1); Creatinine Clr Calc Pharmacy 46.9 ml/min; Est GFR (African American) 56.4; Est GFR (Non-African American) 48.7; Potassium 4.6 mmol/L (3.5-5.1)
--- NOTE | 2019-07-03 08:54 | Orthopedic Progress Note ---
Date of Service July 03, 2019 Assessment & Plan (1) Lumbar stenosis with neurogenic claudication: We will continue physical therapy today monitor her YADI output anticipate discharge home in the next few days. Present on Admission?: Yes Admission and Anticipated Discharge Date Admission Date: July 02, 2019 Subjective Patient's back pain is controlled leg symptoms markedly improved. Physical Exam Physical Exam: Patient is in the chair at the bedside is good strength testing appears comfortable. Results & Data ([facility]) Vital Signs (Past 12 Hours) Vital Signs Temp Pulse Pulse Resp BP BP Pulse Ox 07/03/19 07:37 36.9 C 80 16 144/79 H 97 07/03/19 02:48 36.9 C 94 H 15 103/69 96 07/02/19 23:08 36.8 C 78 15 109/70 97
[2019-07-03] MEDS: POTASSIUM CITRATE 10 MEQ TAB PO SCH ×2 (08:56→20:05)
[2019-07-03] MEDS: CALCIUM 600MG + VIT D 400 IU TAB PO SCH ×2 (08:56→20:05)
[2019-07-03] MEDS: lisinopriL 5 MG TAB PO SCH (08:56)
[2019-07-03] MEDS: PANTOprazole 40 MG TAB PO SCH ×2 (08:56→20:04)
[2019-07-03] MEDS: OXYCODONE HCL IR 5 MG TAB (IMMEDIATE RELEASE) PO PRN ×3 (09:02→20:01)
[2019-07-03] MEDS ORDERED: SUCRALFATE 1 GM/10 ML UDC PO PRN (14:22)
[2019-07-03] MEDS: TRAMADOL HCL 50 MG TABLET PO PRN ×2 (15:29→23:10)
--- NOTE | 2019-07-03 16:47 | Hospitalist Progress Note ---
Date of Service July 03, 2019 Assessment & Plan (1) Lumbar stenosis with neurogenic claudication: - S/P lumbar intravertebral disc displacement, spinal stenosis L2-3 with removal of posterior instrumentation previously placed, lumbar decompression with bilateral medial facetectomies and foraminotomies posterior spinal fusion. -Pain management and bowel regimen per primary team -Continue PT/OT -No chemical prophylaxis in the setting of spinal surgery -Would recommend discontinuing Celebrex with patient's recent history of having gastric ulcers and requiring high-dose PPI, consider transition to different pain medication. Patient notes that gabapentin gave her side effects the last time she was on them although has difficulty expressing exactly what it made her feel. (2) Anemia: - Appears normocytic - possibly of chronic disease; also S/P nephrectomy - Baseline appears around 10 - currently at 8.4 so some may be acute blood loss from surgical losses and hemodilution - Asymptomatic - will recheck labs in AM - Continue supplementation - intolerant to oral iron (3) Hyponatremia: - Asymptomatic - Na 128 on AM labs - She reports she had about 3 full hospital water cups prior to my visit - maybe some dilutional effects - will check AM labs (4) Hypertension: - STABLE -Continue lisinopril 5 mg every morning (5) Hyperlipidemia: -Continue simvastatin 20 mg at bedtime (6) Asthma, mild intermittent: -Albuterol inhaler as needed, well controlled - Cont mometazone 2 sprays daily (7) GERD without esophagitis: -Also with history of peptic ulcer disease, recently had EGD completed in May 2019 which showed resolvent of ulcerations -Continue pantoprazole 40 mg bid -Recommend discontinuation of Celebrex (8) Hypothyroidism: -Continue levothyroxine 50 mcg daily (9) Migraine: -Continue Maxalt as needed (10) Vitamin D deficiency: -Continue supplementation with vitamin D and glucosamine chondroitin, pain control as per primary team (11) Anxiety and depression: -Continue Effexor 150 mg at bedtime, trazodone 50 mg daily prn (12) DVT prophylaxis: -Teds, SCDs, no chemical prophylaxis Thank you for involving us in the care of Ms. Duarte. Please do not hesitate to call with questions or concerns. Medicine will follow along. Admission and Anticipated Discharge Date Admission Date: July 02, 2019 Subjective She reports feeling well today. States this is the best she has felt after a back surgery. Reports her pain is under control and is hoping to return home tomorrow. She does endorse some acid reflux last night and did place Carafate PRN. She states she had some Maalox and that seemed to help. She reports long standing anemia but denies any acute symptoms. Hemodynamically stable. Verbalizes no other complaints. Review of Systems Constitutional: no fever and no chills Respiratory: no cough and no dyspnea Cardiovascular: no chest pain, no palpitations and no lightheadedness Gastrointestinal: no abdominal pain, no nausea, no vomiting, no constipation and no diarrhea/loose stools Genitourinary: no dysuria Musculoskeletal: no back pain Integumentary: no rash Physical Exam Constitutional: WD/WN, vitals as above no acute distress Eyes: + anicteric sclerae ENMT: Ears: no hearing impairment Neck: trachea midline Respiratory: normal respiratory effort, lungs clear to auscultation Cardiovascular: RRR, no murmur, no edema Gastrointestinal (Abdomen): Inspection/Auscultation: normal bowel sounds Percussion/Palpation: abdomen soft; abdomen nontender Musculoskeletal: Head/Neck/Chest: normocephalic and head atraumatic Skin: no rashes, warm and dry Neurologic: moves all extremities Psychiatric: A+Ox3, euthymic affect Results & Data ([facility]) Vital Signs (Past 12 Hours) Vital Signs Temp Pulse Pulse Resp BP BP Pulse Ox 07/03/19 16:31 106/63 07/03/19 15:22 36.7 C 90 18 84/58 L 98 07/03/19 11:42 37.0 C 85 16 116/76 97 07/03/19 07:37 36.9 C 80 16 144/79 H 97 PG Care Time/CCT Total # of Minutes Spent Total Time Spent with Patient: Total time spent is greater than 50% in coordination of care (as documented) at patient's floor/unit and/or counseling patient: Coding Level of Care Code 01070 Inpt Consult Level 2 Diagnoses Lumbar stenosis with neurogenic claudication M48.062 Anemia D64.9 Hyponatremia E87.1 Hypertension I10 Hyperlipidemia E78.5 Asthma, mild intermittent J45.20 GERD without esophagitis K21.9 Hypothyroidism E03.9 Migraine G43.909 Vitamin D deficiency E55.9 Anxiety and depression F41.9; F32.9 DVT prophylaxis Z29.9
[2019-07-03] MEDS: DOCUSATE SODIUM/SENNA 50/8.6MG TAB PO SCH (20:04)
[2019-07-03] MEDS: VENLAFAXINE HCL XR 150 MG CAPXR PO SCH (20:05)
[2019-07-03] MEDS: SIMVASTATIN 20 MG TAB PO SCH (20:05)
[2019-07-03] MEDS: CHOLECALCIFEROL 1,000 UNITS 25 MCG TAB PO SCH (20:05)
[2019-07-03] MEDS: CEROVITE ADV FORMULA TAB PO SCH (20:05)
[2019-07-03] MEDS: FLUTICASONE PROPIONATE NA SPR 16 GM BTL SCH (20:06)
[2019-07-03] MEDS: LORATADINE 10 MG TAB PO SCH (20:06)
[2019-07-03] MEDS: ALUMINUM/MAGNESIUM SUSP 30 ML UDC PO PRN (23:07)
[2019-07-04] MEDS: OXYCODONE HCL IR 5 MG TAB (IMMEDIATE RELEASE) PO PRN ×3 (04:53→20:09)
[2019-07-04 05:54] LABS: Hematocrit (blood only) 25.3 % (37-47); Hemoglobin 8.2 g/dL (12.0-16.0); Mean Corpuscular Hgb Conc 32.4 g/dL (32-36); Mean Corpuscular Volume 92.7 fL (80-100); Platelet Count 295 K/uL (130-400); RDW Coefficient of Variation 13.2 % (11.5-14.5); RDW Standard Deviation 44.5 fL (36.4-46.3); Red Blood Count 2.73 M/uL (4.2-5.4); White Blood Count 8.89 K/uL (4.8-10.8)
[2019-07-04] MEDS: POLYETHYLENE (MIRALAX) 17 GM PACK PO SCH ×4 (06:24→23:33)
[2019-07-04] MEDS: LEVOTHYROXINE SODIUM 50 MCG TABLET PO SCH (06:24)
[2019-07-04 06:32] LABS: BUN Creatinine Ratio 19.4 (10-20); Calcium 8.7 mg/dl (8.5-10.1); Creatinine Clr Calc Pharmacy 53.7 ml/min; Est GFR (African American) 66.5; Est GFR (Non-African American) 57.4; Potassium 4.5 mmol/L (3.5-5.1)
[2019-07-04] MEDS: CALCIUM 600MG + VIT D 400 IU TAB PO SCH ×2 (08:26→20:05)
[2019-07-04] MEDS: POTASSIUM CITRATE 10 MEQ TAB PO SCH ×2 (08:26→20:05)
[2019-07-04] MEDS: PANTOprazole 40 MG TAB PO SCH ×2 (08:26→20:05)
[2019-07-04] MEDS: lisinopriL 5 MG TAB PO SCH (08:26)
--- NOTE | 2019-07-04 11:32 | Orthopedic Progress Note ---
Date of Service July 04, 2019 Assessment & Plan (1) Lumbar stenosis with neurogenic claudication: At this time we will continue physical therapy monitor her YADI output anticipate discharge home tomorrow. Present on Admission?: Yes Admission and Anticipated Discharge Date Admission Date: July 02, 2019 Subjective Back pain controlled leg symptoms improved Physical Exam Physical Exam: Patient is good strength testing appears comfortable. Results & Data ([facility]) Vital Signs (Past 12 Hours) Vital Signs Temp Pulse Pulse Resp BP BP Pulse Ox 07/04/19 08:23 36.8 C 78 16 106/70 96 07/03/19 23:20 37.1 C 90 15 105/70 99
--- NOTE | 2019-07-04 13:21 | Hospitalist Progress Note ---
Date of Service July 04, 2019 Assessment & Plan (1) Lumbar stenosis with neurogenic claudication: - S/P lumbar intravertebral disc displacement, spinal stenosis L2-3 with removal of posterior instrumentation previously placed, lumbar decompression with bilateral medial facetectomies and foraminotomies posterior spinal fusion. -Pain management and bowel regimen per primary team -Continue PT/OT -No chemical prophylaxis in the setting of spinal surgery -Would recommend discontinuing Celebrex with patient's recent history of having gastric ulcers and requiring high-dose PPI, consider transition to different pain medication. Patient notes that gabapentin gave her side effects the last time she was on them although has difficulty expressing exactly what it made her feel. (2) Anemia: - Appears normocytic - possibly of chronic disease; also S/P nephrectomy - Baseline appears around 10 - currently at 8.2 so some may be acute blood loss from surgical losses and hemodilution - Asymptomatic - recheck in AM - Continue supplementation - intolerant to oral iron (3) Hyponatremia: - Asymptomatic - Na 128 on 07/02 now at 132 -- Maybe related some to increased fluid intake vs Effexor causing an SIADH? (4) Hypertension: - STABLE -Continue lisinopril 5 mg every morning (5) Hyperlipidemia: -Continue simvastatin 20 mg at bedtime (6) Asthma, mild intermittent: -Albuterol inhaler as needed, well controlled - Cont mometazone 2 sprays daily (7) GERD without esophagitis: -Also with history of peptic ulcer disease, recently had EGD completed in May 2019 which showed resolvution of ulcerations -Continue pantoprazole 40 mg bid -Recommend discontinuation of Celebrex (8) Hypothyroidism: -Continue levothyroxine 50 mcg daily (9) Migraine: -Continue Maxalt as needed (10) Vitamin D deficiency: -Continue supplementation with vitamin D and glucosamine chondroitin, pain control as per primary team (11) Anxiety and depression: -Continue Effexor 150 mg at bedtime, trazodone 50 mg daily prn (12) DVT prophylaxis: -Teds, SCDs, no chemical prophylaxis Thank you for involving us in the care of Ms. Duarte. Please do not hesitate to call with questions or concerns. Medicine will follow along. Admission and Anticipated Discharge Date Admission Date: July 02, 2019 Subjective Reports feeling okay today. Slept well but a little tired today. Has been ambulating and plans to walk the halls again this afternoon. Having a bit more pain today but the medications seem to be controlling this. Her hemoglobin is 8.2 so slightly lower then yesterday however no CP, SOB, dizziness. Hemodynamically stable. She anticipates going home tomorrow depending on her drain output. Review of Systems Constitutional: + fatigue; no fever and no chills Respiratory: no cough and no dyspnea Cardiovascular: no chest pain and no lightheadedness Gastrointestinal: no abdominal pain, no nausea, no vomiting, no constipation and no diarrhea/loose stools Genitourinary: no dysuria Musculoskeletal: + back pain (controlled with pain medications) Integumentary: no rash Physical Exam Constitutional: WD/WN, vitals as above no acute distress Eyes: + anicteric sclerae ENMT: Ears: no hearing impairment Neck: trachea midline Respiratory: normal respiratory effort, lungs clear to auscultation Cardiovascular: RRR, no murmur, no edema Gastrointestinal (Abdomen): Inspection/Auscultation: normal bowel sounds Percussion/Palpation: abdomen soft; abdomen nontender Musculoskeletal: Head/Neck/Chest: normocephalic and head atraumatic Skin: no rashes, warm and dry Neurologic: moves all extremities Psychiatric: A+Ox3, euthymic affect Results & Data ([facility]) Vital Signs (Past 12 Hours) Vital Signs Temp Pulse Resp BP Pulse Ox 07/04/19 08:23 36.8 C 78 16 106/70 96 PG Care Time/CCT Total # of Minutes Spent Total Time Spent with Patient: Total time spent is greater than 50% in coordination of care (as documented) at patient's floor/unit and/or counseling patient: Coding Level of Care Code 64651 Inpt Consult Level 2 Diagnoses Lumbar stenosis with neurogenic claudication M48.062 Anemia D64.9 Hyponatremia E87.1 Hypertension I10 Hyperlipidemia E78.5 Asthma, mild intermittent J45.20 GERD without esophagitis K21.9 Hypothyroidism E03.9 Migraine G43.909 Vitamin D deficiency E55.9 Anxiety and depression F41.9; F32.9 DVT prophylaxis Z29.9
[2019-07-04] MEDS: TRAMADOL HCL 50 MG TABLET PO PRN (15:23)
[2019-07-04] MEDS: VENLAFAXINE HCL XR 150 MG CAPXR PO SCH (20:04)
[2019-07-04] MEDS: CHOLECALCIFEROL 1,000 UNITS 25 MCG TAB PO SCH (20:04)
[2019-07-04] MEDS: FLUTICASONE PROPIONATE NA SPR 16 GM BTL SCH (20:04)
[2019-07-04] MEDS: SIMVASTATIN 20 MG TAB PO SCH (20:05)
[2019-07-04] MEDS: LORATADINE 10 MG TAB PO SCH (20:05)
[2019-07-04] MEDS: DOCUSATE SODIUM/SENNA 50/8.6MG TAB PO SCH (20:05)
[2019-07-04] MEDS: CEROVITE ADV FORMULA TAB PO SCH (20:06)
[2019-07-05] MEDS: LEVOTHYROXINE SODIUM 50 MCG TABLET PO SCH (06:15)
[2019-07-05] MEDS: POLYETHYLENE (MIRALAX) 17 GM PACK PO SCH ×2 (06:15→12:17)
[2019-07-05] MEDS: OXYCODONE HCL IR 5 MG TAB (IMMEDIATE RELEASE) PO PRN ×2 (07:05→13:05)
--- NOTE | 2019-07-05 07:41 | Anesthesiology Progress Note ---
Date of Service July 05, 2019 Anesthesia Post Procedure Vital Signs Vital Signs: Temp Pulse Pulse Resp BP BP Pulse Ox 07/04/19 23:45 37.1 C 86 18 112/65 98 07/04/19 15:20 37.2 C 81 15 98/66 L 93 07/04/19 08:23 36.8 C 78 16 106/70 96 Notes Mental Status: alert / awake / arousable and participated in evaluation Patient Amnestic to Procedure: Yes Nausea / Vomiting: adequately controlled Pain: adequately controlled Airway Patency, RR, SpO2: stable & adequate BP & HR: stable & adequate Hydration State: stable & adequate Anesthetic Complications: no major complications apparent
[2019-07-05] MEDS: lisinopriL 5 MG TAB PO SCH (08:00)
[2019-07-05] MEDS: POTASSIUM CITRATE 10 MEQ TAB PO SCH (08:01)
[2019-07-05] MEDS: CALCIUM 600MG + VIT D 400 IU TAB PO SCH (08:01)
[2019-07-05] MEDS: PANTOprazole 40 MG TAB PO SCH (08:01)
--- NOTE | 2019-07-05 11:30 | Hospitalist Progress Note ---
Date of Service July 05, 2019 Assessment & Plan (1) Lumbar stenosis with neurogenic claudication: - S/P lumbar intravertebral disc displacement, spinal stenosis L2-3 with removal of posterior instrumentation previously placed, lumbar decompression with bilateral medial facetectomies and foraminotomies posterior spinal fusion. -Pain management and bowel regimen per primary team -Continue PT/OT -No chemical prophylaxis in the setting of spinal surgery -Would recommend discontinuing Celebrex with patient's recent history of having gastric ulcers and requiring high-dose PPI, consider transition to different pain medication. Patient notes that gabapentin gave her side effects the last time she was on them although has difficulty expressing exactly what it made her feel. (2) Anemia: - Appears normocytic - possibly of chronic disease; also S/P nephrectomy - Baseline appears around 10 - currently at 8.2 so some may be acute blood loss from surgical losses and hemodilution - Asymptomatic - Continue supplementation - intolerant to oral iron (3) Hyponatremia: - Asymptomatic - Na 128 on 07/02 now at 132 -- Maybe related some to increased fluid intake vs Effexor causing an SIADH? (4) Hypertension: - STABLE -Continue lisinopril 5 mg every morning (5) Hyperlipidemia: -Continue simvastatin 20 mg at bedtime (6) Asthma, mild intermittent: -Albuterol inhaler as needed, well controlled - Cont mometazone 2 sprays daily (7) GERD without esophagitis: -Also with history of peptic ulcer disease, recently had EGD completed in May 2019 which showed resolvution of ulcerations -Continue pantoprazole 40 mg bid -Recommend discontinuation of Celebrex (8) Hypothyroidism: -Continue levothyroxine 50 mcg daily (9) Migraine: -Continue Maxalt as needed (10) Vitamin D deficiency: -Continue supplementation with vitamin D and glucosamine chondroitin, pain control as per primary team (11) Anxiety and depression: -Continue Effexor 150 mg at bedtime, trazodone 50 mg daily prn (12) DVT prophylaxis: -Teds, SCDs, no chemical prophylaxis Thank you for involving us in the care of Ms. Duarte. Please do not hesitate to call with questions or concerns. Plan for discharge today per primary Admission and Anticipated Discharge Date Admission Date: July 02, 2019 Supervising Physician Co-Signing Physician Notes Attending Attestation - Chart reviewed in detail, care plan d/w SHAYY Lares. I agree w/ the spring components of her documentation. s/p lumbar back surgery. Doing well from orthopedic standpoint. Vitals stable. Na 132 on 07/03 -- strongly recommend repeat BMP within 5 days for stability. Agree w/ d/c of celebrex in light of upper GI history. Other medical problems stable. Ruslan Gates MD Subjective Reports feeling better today then yesterday. Pain is controlled. Just has not moved her bowels and beginning to feel a little more bloated. Utilizing bowel regimen and ambulating. Tolerating diet without issue, no N/V. She denies lightheadedness/dizziness, CP, SOB. She verbalizes no other complaints. Review of Systems Constitutional: no fever and no chills Respiratory: no cough and no dyspnea Cardiovascular: no chest pain, no palpitations, no lightheadedness, no edema and no calf pain Gastrointestinal: + bloating; no abdominal pain, no nausea and no vomiting Genitourinary: no dysuria Musculoskeletal: no back pain Integumentary: no rash Neurologic: no tingling and no numbness Physical Exam Constitutional: WD/WN, vitals as above no acute distress Eyes: + anicteric sclerae ENMT: Ears: no hearing impairment Neck: trachea midline Respiratory: normal respiratory effort, lungs clear to auscultation Cardiovascular: RRR, no murmur, no edema Gastrointestinal (Abdomen): Inspection/Auscultation: normal bowel sounds Percussion/Palpation: abdomen soft; abdomen nontender Musculoskeletal: Head/Neck/Chest: normocephalic and head atraumatic + YADI present with serosang fluid Skin: no rashes, warm and dry Neurologic: moves all extremities Psychiatric: A+Ox3, euthymic affect Results & Data ([facility]) Vital Signs (Past 12 Hours) Vital Signs Temp Pulse Pulse Resp BP BP Pulse Ox 07/05/19 08:56 37.2 C 85 86 18 98/66 L 140/80 96 07/05/19 07:58 37.2 C 85 18 140/80 96 07/04/19 23:45 37.1 C 86 18 112/65 98 PG Care Time/CCT Total # of Minutes Spent Total Time Spent with Patient: Total time spent is greater than 50% in coordination of care (as documented) at patient's floor/unit and/or counseling patient: Coding Level of Care Code 69823 Inpt Consult Level 2 Diagnoses Lumbar stenosis with neurogenic claudication M48.062 Anemia D64.9 Hyponatremia E87.1 Hypertension I10 Hyperlipidemia E78.5 Asthma, mild intermittent J45.20 GERD without esophagitis K21.9 Hypothyroidism E03.9 Migraine G43.909 Vitamin D deficiency E55.9 Anxiety and depression F41.9; F32.9 DVT prophylaxis Z29.9
--- NOTE | 2019-07-05 12:06 | Discharge Summary ---
Date of Service July 05, 2019 Admission HPI Per Admitting Provider This is a 63-year-old female well-known to me the presents with back and bilateral leg pain after failing extensive course of nonoperative care is here for surgical invention. Principal Diagnosis Lumbar spinal stenosis with neurogenic claudication Discharge Data Allergies Allergy/AdvReac Type Severity Reaction Status Date / Time Penicillins Allergy Mild SWELLING Verified 07/02/19 09:02 pregabalin Allergy Unknown SWELLING Verified 07/02/19 09:02 Sulfa (Sulfonamide Allergy Unknown HIVES Verified 07/02/19 09:02 Antibiotics) codeine AdvReac Mild PROJECTILE Verified 07/02/19 09:02 VOMITING Consultations 07/02/19 14:46 Consult Case Management - Discharge Planning Routine Consult Hospitalist Routine Procedures Performed Operation Date: 07/02/19 10:25 Actual Procedures p L2-L3 Decompression and Fusion, Spinal Cord Monitoring(Not Applicable) - Bandar Chapin DO s L3-L5 Hardware Removal(Not Applicable) - Bandar Chapin DO Ordered Studies 07/02/19 10:25 FL fluoroscopy <1hr Routine FL lumbar spine 2-3V Routine Hospital Course (1) Lumbar stenosis with neurogenic claudication: Patient with lumbar decompression fusion tolerated well second orthopedic for postoperative. Postop day 1 she was up and ambulating progressed to postop day 2 on postop day #3 YADI drainage or decreased appropriately. Bowels working well. Excellent strength testing. Subsequent discharge home. Discharge orders and instructions from the chart for further review. Total Time Total Time Spent Total Time Spent (In Minutes): 20 minutes Discharge Plan Discharge Items Patient Disposition: Home - Self-Care Reason For Visit: LUMBAR INTERVERTEBRAL DISC DISPLACEMENT Discharge Diagnosis: Lumbar spinal stenosis with neurogenic claudication Activity: As commented below Non-emergency contact: Primary Care Provider Call non-emergency contact if: you have any medication questions Follow-up/Referrals: May Haynes MD [Primary Care Provider] - Diet: Regular Addtl Attending Provider Instructions: ACTIVITY RECOMMENDATIONS: SELF CARE INSTRUCTIONS AFTER THORACIC/LUMBAR FUSIONS 1. You may walk to your tolerance. It is good exercise for your legs and back. Expect some back and intermittent leg aches and pains. 2. You may perform "counter-top" level activities (make a sandwich, dc with a project, etc.). 3. No bending or lifting of more than 10 pounds or back twisting of any nature (roll like a log when turning in bed). 4. You may ride in a car for 20-30 minutes at a time. No driving until after your first visit with your doctor. 5. Frequent changes of position and restricting sitting to 30 minutes at a time will help limit the amount of back spasms and stiffness you may experience. 6. You may discontinue the use of ambulatory aids (cane, crutches, etc.) once your strength and confidence allow. 7. You may sanitarian inspector the shower and let water strike your incision when you arrive home at least once daily. Do not take a tub bath, sit in a hot tub or go into a swimming pool until after your first recheck in the office. SPECIAL CARE INSTRUCTIONS: VERY IMPORTANT TO READ AND REVIEW A. Your surgical incision has been closed with a cosmetic suture under the skin that will dissolve in about 6 weeks. In 14 days, you can use a pair of clean scissors and cut the suture that is left outside of the skin at the ends of your incision. 1. The small skin tapes can be removed 7 days after surgery if they have not fallen off by that point. 2. You may keep the wound open to air as much as possible to promote healing after post-op day number 5 unless told otherwise by your doctor. 3. If you think the wound looks like it is becoming infected (redness or worsening drainage) and/or you are experiencing fever, chill or worsening back pain and muscle spasms, contact the office so that we may evaluate you as soon as possible. B. Complications are uncommon, but please contact us if you have any signs or symptoms of: 1. wound infection (fever higher than 102.5 degrees F, redness, separation of wound, drainage, or increasing pain from the incision) 2. blood clots in legs (pain, swelling, redness and warmth in legs) 3. urinary tract infection (fever higher than 102.5 degrees F, burning upon urination or increased frequency of urination) 4. nerve problems (inability to walk on your toes or heels, numbness, loss of bowel or bladder control) 5. any other symptoms that concern you C. Please call the office at if you have any concerns or questions about your operation or recovery. D. No smoking! Smoking drastically decreases the chance of a solid fusion. E. Do not take any anti-inflammatory medications (Indocin, Advil, Motrin, Aspirin, Naprosyn, etc.) as these may inhibit the chance of a solid fusion. Tylenol is okay to take for pain. MANAGING PAIN AFTER SPINAL SURGERY 1. Narcotic medication is intended for short-term use and will be provided for surgical pain. Surgical pain usually lasts for a period of 4-6 weeks. Narcotic medication includes Percocet, Vicodin, Darvocet, Tylenol #3 or Lortab. 2. Longer-term pain is more appropriately treated with non-narcotic medication such as Tylenol ES. 3. Muscle spasm is not appropriately treated with narcotics. Muscle relaxers such as Soma, Flexeril or Skelaxin can be used along with Tylenol ES. 4. Remember that we all live with some "aches and pains". This is not unusual or uncommon after an injury or as we get older. a. Back pain is expected and may include muscle spasms for 4 to 6 weeks after surgery. The pain should gradually improve. If the pain worsens for no apparent reason, please contact the office. b. Intermittent leg pain may also be experienced and should not be concerned about unless it worsens for no apparent reason. If so, please contact the office. 5. We will provide appropriate medication within the normal guidelines of their prescribed use. We will also be very cautious and aware of potential abuse and extended duration of patients' medication needs. a. Pain medications are for your comfort and to assist with sleep and rest so that the tissue can heal. They are not provided in order to return to normal activity and should not be used through the day. To do so or worsening pain at night can result from ongoing tissue damage and development of tolerance to the prescribed medicine. 6. Please allow 2-3 days to process refills. Prescriptions will not be mailed but must be picked up at the office. FOLLOW UP VISIT: Keep your scheduled follow-up appointment. Any questions, please call the office at . Pending Studies at Discharge: No Stand-Alone Forms: [employer], Smoking Cessation Medications and DC Order Prescriptions: New tramadol 50 mg tablet 50 mg PO Q6H PRN (Reason: pain, moderate) Qty: 30 RF: 0 oxycodone 5 mg tablet 5 mg PO Q6H PRN (Reason: pain, severe) Qty: 30 RF: 0 Continued potassium citrate 10 mEq (1,080 mg) tablet extended release 10 meq PO BID Qty: 90 RF: 2 simvastatin 20 mg tablet 20 mg PO HS Qty: 90 RF: 1 celecoxib [Celebrex] 100 mg capsule 200 mg PO BID RF: 0 albuterol sulfate [ProAir HFA] 90 mcg/actuation HFA aerosol inhaler 2 puffs INH Q4H PRN (Reason: shortness of breath or wheezing) Qty: 8.5 RF: 5 calcium carbonate-vitamin D3 500 mg(1,250mg) -400 unit tablet 1 tab PO BID RF: 0 hydrocodone-chlorpheniramine 10-8 mg/5 mL suspension,extended rel 12 hr 5 ml PO Q12H PRN (Reason: Cough) Qty: 120 RF: 0 mometasone 50 mcg/actuation spray,non-aerosol 2 sprays intranasal HS RF: 0 trazodone 50 mg Tablet 50 mg PO DAILY PRN (Reason: Sleep) RF: 0 loratadine 10 mg Tablet 10 mg PO QPM RF: 0 Multivitamin Women 50 Plus 8 mg iron-400 mcg-300 mcg Tablet 1 tab PO QPM RF: 0 lisinopril 5 mg tablet 5 mg PO QAM RF: 0 cholecalciferol (vitamin D3) 1,000 unit capsule 1,000 units PO HS RF: 0 venlafaxine [Effexor XR] 150 mg capsule,extended release 24hr 150 mg PO HS RF: 0 rizatriptan [Maxalt] 10 mg Tablet 10 mg PO UD PRN (Reason: Migraine Headache) RF: 0 levothyroxine 50 mcg tablet 50 mcg PO QAM RF: 0 pantoprazole [Protonix] 40 mg tablet,delayed release (DR/EC) 40 mg PO BID RF: 0 glucosamine-chondroitin [Osteo Bi-Flex] 250-200 mg tablet 1 tab PO BID RF: 0 Discharge Orders: Discharge Order (Routine); Ordered 07/05/19 Ordered By: Bandar Chapin Admission Data Admit Date/Time: 07/02/19 14:46 Attending Provider: Bandar Chapin Admit Provider: Bandar Chapin Primary Care Provider: May Haynes Other Providers: Karlos Tavarez Other Interventions: Discharge Summary Assessment (RN) Last Done: 07/05/19 08:56
== END 2019-07-05 13:15 | disposition home or self-care (01) | DRG 454 ==
LOC: ASU 08:06 → 3E 14:46

== ENCOUNTER 2022-01-25 06:03 | Observation (INO) ==
--- NOTE | 2022-01-03 14:29 | PAT Medication Instructions ---
Medication Instructions Date of Service January 03, 2022 Home Medications Medication Instructions Recorded hydroxyzine HCl 10 mg tablet 10 mg PO TID PRN itching #30 tabs 12/27/19 trazodone 50 mg tablet 50 mg PO HS PRN Sleep #90 tabs 04/19/21 levothyroxine 50 mcg tablet 50 mcg PO QAM #90 tabs 08/16/21 lisinopril 5 mg tablet 5 mg PO QAM #90 tabs 08/22/21 simvastatin 20 mg tablet 20 mg PO HS #90 tabs 08/23/21 potassium citrate 10 mEq (1,080 10 meq PO BID #180 tabs 09/04/21 mg) tablet,extended release albuterol sulfate 90 mcg/actuation 2 puff inhalation Q4H PRN 10/22/21 aerosol inhaler (ProAir HFA) shortness of breath or wheezing #8.5 grams mometasone 50 mcg/actuation nasal spray 2 sprays intranasal HS rizatriptan 10 mg tablet (Maxalt) 10 mg PO UD PRN loratadine 10 mg tablet 10 mg PO HS hydroxyzine HCl 10 mg tablet 10 mg PO TID PRN Medical Marijuana 1 dose buccal TID PRN trazodone 50 mg tablet 50 mg PO HS PRN levothyroxine 50 mcg tablet 50 mcg PO QAM lisinopril 5 mg tablet 5 mg PO QAM simvastatin 20 mg tablet 20 mg PO HS potassium citrate 10 mEq (1,080 mg) tablet,extended release 10 meq PO BID albuterol sulfate 90 mcg/actuation aerosol inhaler (ProAir HFA) 2 puff inhalation Q4H PRN metoprolol succinate 25 mg tablet,extended release 24 hr (Toprol XL) 25 mg PO QAM pantoprazole 40 mg tablet,delayed release 40 mg PO BID sucralfate 1 gram tablet 1 g PO UD venlafaxine 150 mg capsule,extended release 24 hr 150 mg PO HS Continue as directed rizatriptan 10 mg tablet (Maxalt) 10 mg PO UD PRN(if needed) hydroxyzine HCl 10 mg tablet 10 mg PO TID PRN(if needed) DO NOT take the morning of surgery Medical Marijuana 1 dose buccal TID PRN(if needed) lisinopril 5 mg tablet 5 mg PO QAM potassium citrate 10 mEq (1,080 mg) tablet,extended release 10 meq PO BID sucralfate 1 gram tablet 1 g PO UD Take morning of surgery With a small sip of water, OTHERWISE NOTHING TO EAT OR DRINK AFTER MIDNIGHT: levothyroxine 50 mcg tablet 50 mcg PO QAM albuterol sulfate 90 mcg/actuation aerosol inhaler (ProAir HFA) 2 puff inhalation Q4H PRN(use if needed; please bring with you to hospital day of surgery if possible) metoprolol succinate 25 mg tablet,extended release 24 hr (Toprol XL) 25 mg PO QAM pantoprazole 40 mg tablet,delayed release 40 mg PO BID Take evening before surgery mometasone 50 mcg/actuation nasal spray 2 sprays intranasal HS loratadine 10 mg tablet 10 mg PO HS trazodone 50 mg tablet 50 mg PO HS PRN(if needed) simvastatin 20 mg tablet 20 mg PO HS potassium citrate 10 mEq (1,080 mg) tablet,extended release 10 meq PO BID albuterol sulfate 90 mcg/actuation aerosol inhaler (ProAir HFA) 2 puff inhalation Q4H PRN(if needed) pantoprazole 40 mg tablet,delayed release 40 mg PO BID venlafaxine 150 mg capsule,extended release 24 hr 150 mg PO HS Other Notes If you have any questions please call us at [phone] or [phone] or [phone] or [phone]
--- NOTE | 2022-01-18 09:02 | Anesthesiology Consultation ---
Date of Service January 18, 2022 Assessment & Plan (1) Encounter for pre-operative examination: - COVID screening: Per assessment on 01/18: No current COVID-19 related symptoms. Travel screen negative. Patient was Covid positive (home test 12/31/21, [place] 01/03/22 at [facility]). Symptoms at time: fever, congestion, fatigue, body aches, sore throat > resolved. Pt can proceed as scheduled without additional preop Covid testing or additional Covid contact precautions per 90 days protocol. - Cardiology office visit (06/06/21): "history of PSVT, Hypertension.. Symptomatic Sinus Tachycardia, and a prior Syncopal Episode x 1 (Mid September 2018) -- who presents today for assessment of Recurrent Near Syncope and Intermittent Tachycardia.. Patient states that over the last 6 months or more her functional status has gone downhill. Patient has chronic pain related to her spinal stenosis and is less active due to limited standing and walking tolerance. Previously she could shop all day long, but now the maximum number of stores she can go into is 3 -- and she describes after being upright for too long that she develops nausea, sweatiness, generalized weakness, upper abdominal discomfort, and lightheadedness. These symptoms force her to sit down. They can last for several minutes, and she feels somewhat wiped out afterwards. Fortunately, she has not had any further syncopal episode or any loss of consciousness. Question if this could be Vasovagal Response related to her chronic and relatively severe pain. She also admits to exertional dyspnea if she does too much, which she has attributed this to her asthma up until this point. This may be related to deconditioning, but we need to rule out other potential causes such myocardial ischemia, LV dysfunction, etc.. Otherwise she describes intermittent elevated heart rate -- she was actually seen [facility] a few weeks ago for a spinal injection and her heart rate was 130 beats per minute the entire time she was there. Nobody did an EKG to document what her rhythm was, nor did she seek further workup elsewhere. She was not having any other symptoms at the time other than the sensation of palpitations. Nonetheless, 130 bpm would be considered slow for an AVNRT but could represent sinus tachycardia vs atrial tachycardia. Recommend the following.. MCOT x 2 weeks, or until she clearly experiences the above mentioned symptoms so we can match what her heart rate and rhythm are doing at the time.. Dobutamine Stress Echocardiogram to assess LV function, cardiac structure, and rule out myocardial ischemia.. If these tests are unrevealing, we will most likely send for a tilt-table test." - PCP office visit (01/18/22): "Scheduled for cervical spine ACDF with Dr. Chapin on 01/25/22. She is feeling well, no acute complaints. Reviewed most recent labs, VS. Patient is at acceptable risk to proceed with planned procedure." Chart Review Chart Review: Acceptable Risk for Surgery (pending evaluation AM DOS) and Patient seen in Pre Admission Testing Teaching & Discussion Pre-Anesthesia Teaching/Discussion Notes: Instructed NPO after midnight before surgery,except medications with 15 cc of water. Medication instructions provided according to the PAT guidelines. History Surgery Operation Date: 01/25/22 10:05 Proposed Procedures p C5-C6 Anterior Cervical Discectomy and Fusion; Spinal Cord Monitoring - Bandar Chapin, Height/Weight Height: 5 ft 2 in Weight: 77.2 kg Allergies Allergy/AdvReac Type Severity Reaction Status Date / Time Sulfa (Sulfonamide Allergy Intermediate HIVES Verified 01/18/22 07:01 Antibiotics) Penicillins Allergy Mild SWELLING Verified 01/18/22 07:01 pregabalin Allergy Mild SWELLING Verified 01/18/22 07:01 codeine AdvReac Mild PROJECTILE Verified 01/18/22 07:01 VOMITING Medications Home Medications Medication Instructions Recorded Confirmed Last Taken mometasone 50 mcg/actuation nasal 2 sprays intranasal HS 12/04/18 01/18/22 11/13/21 spray rizatriptan 10 mg tablet (Maxalt) 10 mg PO UD PRN Migraine Headache 03/11/19 01/18/22 06/18/19 loratadine 10 mg tablet 10 mg PO HS 06/09/19 01/18/22 11/13/21 hydroxyzine HCl 10 mg tablet 10 mg PO TID PRN itching #30 tabs 12/27/19 01/18/22 Unknown Medical Marijuana 1 dose buccal TID PRN Pain 06/12/20 01/18/22 12/23/20 trazodone 50 mg tablet 50 mg PO HS PRN Sleep #90 tabs 04/19/21 01/18/22 11/12/21 levothyroxine 50 mcg tablet 50 mcg PO QAM #90 tabs 08/16/21 01/18/22 11/14/21 08:00 lisinopril 5 mg tablet 5 mg PO QAM #90 tabs 08/22/21 01/18/22 11/14/21 08:00 simvastatin 20 mg tablet 20 mg PO HS #90 tabs 08/23/21 01/18/22 11/13/21 potassium citrate 10 mEq (1,080 10 meq PO BID #180 tabs 09/04/21 01/18/22 11/13/21 mg) tablet,extended release albuterol sulfate 90 mcg/actuation 2 puff inhalation Q4H PRN 10/22/21 01/18/22 11/07/21 aerosol inhaler (ProAir HFA) shortness of breath or wheezing #8.5 grams metoprolol succinate 25 mg 25 mg PO QAM 01/02/22 01/18/22 Unknown tablet,extended release 24 hr (Toprol XL) pantoprazole 40 mg tablet,delayed 40 mg PO BID 01/02/22 01/18/22 Unknown release sucralfate 1 gram tablet 1 g PO UD 01/02/22 01/18/22 Unknown venlafaxine 150 mg 150 mg PO HS 01/02/22 01/18/22 Unknown capsule,extended release 24 hr Past Medical History Medical History Anxiety and depression Asthma Stable GERD (gastroesophageal reflux disease) Hiatal hernia History of COVID-19 Covid positive (home test 12/31/21) Symptoms at time: fever, congestion, fatigue, body aches, sore throat > resolved Hx of migraines Hyperlipidemia Hypertension Hypothyroidism 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 No daily pain or problems with jaw ROM Osteoporosis Peptic ulcer disease Controlled with PPI Spinal stenosis Tachyarrhythmia Takes metoprolol Follow[facility] with [facility] cardi[facility] Exercise / Class Metabolic Activity III < 4 Walking/Shop/Light housework (one FS (no CP, + SOB)) Past Family History Family History Mother Breast cancer Father Myocardial infarction Grandmother (Paternal) FHx: diabetes mellitus Grandmother (Maternal) FHx: diabetes mellitus Other Colon cancer Denies family history of Ovarian cancer Prostate cancer Past Surgical History Surgical History Fusion of spine lumbar x3 H/O hand surgery right x2 History of colonoscopy History of esophagogastroduodenoscopy (EGD) History of knee replacement procedure of left knee History of knee replacement procedure of right knee History of repair of rotator cuff right Hx of appendectomy Hx of arthroscopic knee surgery x9 on bilat knees Hx of LASIK Hx of sinus surgery Hx of tonsillectomy Hx of total hysterectomy 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 Toussaint Past Anesthesia History No Hx of Anesthesia Complications and No Family Hx of Anesthesia Complications History of PONV No Hx of PONV and No Hx of Motion Sickness Social History Smoking Status: Never smoker Do You Dip or Chew Tobacco: No Hx Alcohol Use: No Hx Substance Use: Yes substance use type: marijuana (medical marijuana tincture 3x per day for arthritis pain) Review of Systems Patient denies chest pain, shortness of breath, fever, chills, cough, wheezing, palpitations. Physical Exam Vital Signs VITALS BP 115/74 P 67 TEMP 98.4 SP02 98%Ra RESP 18 PHYSICAL Full cervical extension range of motion. Full TMJ range of motion. TMD 3 finger breaths Mallampati Score 3. Dentition: missing molars Lungs: clear throughout to auscultation Cardiac: regular rate and rhythm, no murmurs noted Spine: normal Carotid arteries: negative bruit Extremities: no edema Lab Results Anesthesia Preop Results Results Anesthesia Widget: WBC 8.48 K/ul (4.8-10.8) 01/18/22 Hgb 11.9 g/dl (12.0-16.0) L 01/18/22 Hct 36.6 % (34.1-44.9) 01/18/22 Plt 339 K/uL (130-400) 01/18/22 Na 138 mmol/L (136-145) 01/18/22 K 4.4 mmol/L (3.5-5.1) 01/18/22 Cl 104 mmol/L (98-107) 01/18/22 CO2 28 mmol/L (21-32) 01/18/22 BUN 15 mg/dl (6-23) 01/18/22 Creat 1.01 mg/dl (0.6-1.2) 01/18/22 Glucose Level 102 mg/dl (70-99(Fasting)) H 01/18/22 PT 10.5 Seconds (9.0-12.0) 01/18/22 PTT 27.8 Seconds (21.0-31.0) 01/18/22 INR 1.0 (0.9-1.1) 01/18/22 Urine Color Yellow 01/18/22 Urine Appearance Clear (Clear) 01/18/22 Urine pH 7.0 (4.5-7.5) 01/18/22 Urine Specific [place] 1.011 (1.000-1.030) 01/18/22 Urine Protein Negative (Negative) 01/18/22 Urine Glucose (UA) Negative (Negative) 01/18/22 Urine Ketones Negative (Negative) 01/18/22 Urine Blood Negative (Negative) 01/18/22 Urine Nitrite Negative (Negative) 01/18/22 Urine Bilirubin Negative (Negative) 01/18/22 Urine Urobilinogen Negative (Negative) 01/18/22 Urine Leukocyte Esterase Negative (Negative) 01/18/22 Blood Type O Positive 01/18/22 Antibody Screen NEGATIVE 01/18/22 Testing Electrocardiogram Date: 01/18/22 NSR at 69bpm. NS TWA. Chest X-Ray Date: 01/18/22 Findings: + NAD Stress Test Date: 07/02/21 Type: DSE Date of dobutamine stress echo/ECG for myocardial ischemia 91% MPHR. EF 60-65%. Mild concentric LVH. Borderline RVD. No significant valvular disease. 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 7 beats of SVT. No symptoms. 1% PAC/PVC burden. No atrial fibrillation. Maximum heart rate 224 bpm. Minimum heart rate 50 bpm. Average heart rate 66 bpm. COVID-19 Risk Screen Screening Information COVID-19 Screen Date: 01/18/22 Exposure 21 Days Family/Household +COVID Last 21 Days: No Exposure 10 Days Any COVID Exposure Last 10 Days: No Symptoms Last 10 Days Experienced COVID Sx Last 10 Days: No + COVID 0-90 Days COVID + in Last 0-90 Days: Yes + COVID Test 0-10 Day: No + COVID Test 11-90 Day: Yes Date/Place of COVID-19 Test: Home test 12/31, [place] 01/03
[~2022-01-25 06:03] MED LIST changes: +ACETAMINOPHEN 500 MG TAB PO SCH; -CLINDAMYCIN 600 MG/54 ML BAG IV SCH; +CLINDAMYCIN/D5W 600 MG/50 ML BAG **Premixed Bag IV SCH; +CeleBREX 200 MG CAP PO SCH
[2022-01-25] MEDS ORDERED: ATROPINE SULFATE 0.1 MG/ML 10ML SYR IV PRN (06:34)
[2022-01-25] MEDS ORDERED: ePHEDrine sulfate 50 MG/ML AMP IV PRN (06:34)
[2022-01-25] MEDS ORDERED: fentaNYL citrate 100 MCG/2 ML VIAL IV PRN (06:34)
[2022-01-25] MEDS ORDERED: ONDANSETRON INJ 2 MG/ML 2 ML VIAL IV PRN ×2 (06:34→11:18)
[2022-01-25] MEDS ORDERED: ceFAZolin 330 MG/ML 1 GM VIAL ONE (07:00)
[2022-01-25] MEDS ORDERED: fentaNYL citrate 100 MCG/2 ML VIAL ONE (07:01)
[2022-01-25] MEDS ORDERED: MIDAZOLAM HCL 1 MG/ML 2ML VIAL ONE (07:01)
--- NOTE | 2022-01-25 07:37 | History & Physical Bridge Note ---
Date of Service January 25, 2022 History & Physical Bridge Note I have examined the patient, reviewed the History & Physical and in the interval since the performance of the History & Physical I have noted the following changes of clinical significance: no changes noted
--- NOTE | 2022-01-25 07:39 | History & Physical Report ---
Date of Service January 25, 2022 Assessment & Plan (1) Cervical stenosis of spinal canal: Plan: C5-C6 anterior cervical discectomy and fusion History of Present Illness Chief Complaint: Neck and arm pain Primary Care Provider: May Haynes MD This is a 66-year-old female presents with chronic persistent neck and arm pain after failing course of nonoperative care she is here for surgical invention. Allergies Allergy/AdvReac Type Severity Reaction Status Date / Time Sulfa (Sulfonamide Allergy Intermediate HIVES Verified 01/25/22 06:22 Antibiotics) Penicillins Allergy Mild SWELLING Verified 01/25/22 06:22 pregabalin Allergy Mild SWELLING Verified 01/25/22 06:22 codeine AdvReac Mild PROJECTILE Verified 01/25/22 06:22 VOMITING Home Medications Medication Instructions Recorded Confirmed Type mometasone 50 mcg/actuation nasal 2 sprays intranasal HS 12/04/18 01/25/22 History spray rizatriptan 10 mg tablet (Maxalt) 10 mg PO UD PRN Migraine Headache 03/11/19 01/25/22 History loratadine 10 mg tablet 10 mg PO HS 06/09/19 01/25/22 History hydroxyzine HCl 10 mg tablet 10 mg PO TID PRN itching #30 tabs 12/27/19 01/25/22 Rx Medical Marijuana 1 dose buccal TID PRN Pain 06/12/20 01/25/22 History trazodone 50 mg tablet 50 mg PO HS PRN Sleep #90 tabs 04/19/21 01/25/22 Rx levothyroxine 50 mcg tablet 50 mcg PO QAM #90 tabs 08/16/21 01/25/22 Rx lisinopril 5 mg tablet 5 mg PO QAM #90 tabs 08/22/21 01/25/22 Rx simvastatin 20 mg tablet 20 mg PO HS #90 tabs 08/23/21 01/25/22 Rx potassium citrate 10 mEq (1,080 10 meq PO BID #180 tabs 09/04/21 01/25/22 Rx mg) tablet,extended release albuterol sulfate 90 mcg/actuation 2 puff inhalation Q4H PRN 10/22/21 01/25/22 Rx aerosol inhaler (ProAir HFA) shortness of breath or wheezing #8.5 grams metoprolol succinate 25 mg 25 mg PO QAM 01/02/22 01/25/22 History tablet,extended release 24 hr (Toprol XL) pantoprazole 40 mg tablet,delayed 40 mg PO BID 01/02/22 01/25/22 History release sucralfate 1 gram tablet 1 g PO UD 01/02/22 01/25/22 History venlafaxine 150 mg 150 mg PO HS 01/02/22 01/25/22 History capsule,extended release 24 hr Past Med/Surg History Medical History Anxiety and depression Asthma Stable GERD (gastroesophageal reflux disease) Hiatal hernia History of COVID-19 Covid positive (home test 12/31/21) Symptoms at time: fever, congestion, fatigue, body aches, sore throat > resolved Hx of migraines Hyperlipidemia Hypertension Hypothyroidism 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 No daily pain or problems with jaw ROM Osteoporosis Peptic ulcer disease Controlled with PPI Spinal stenosis Tachyarrhythmia Takes metoprolol [place] [facility] [place] Surgical History Fusion of spine lumbar x3 H/O hand surgery right x2 History of colonoscopy History of esophagogastroduodenoscopy (EGD) History of knee replacement procedure of left knee History of knee replacement procedure of right knee History of repair of rotator cuff right Hx of appendectomy Hx of arthroscopic knee surgery x9 on bilat knees Hx of LASIK Hx of sinus surgery Hx of tonsillectomy Hx of total hysterectomy 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 Toussaint Family History Mother Breast cancer Father Myocardial infarction Grandmother (Paternal) FHx: diabetes mellitus Grandmother (Maternal) FHx: diabetes mellitus Other Colon cancer Denies family history of Ovarian cancer Prostate cancer Social History Smoking Status: Never smoker Second Hand Exposure: No; Do You Dip or Chew Tobacco: No; Tobacco Cessation Education Requested by Patient: No Hx Alcohol Use: No Hx Substance Use: Yes (medical marijuana) Prescribed Medications: Marijuana Last Used Substance Other:: buccal-01/01/22 Substance Use Type Other:: medical marijuana tincture 3x per day for arthritis pain Preferred Language: Croatian Communication Ability: Effective Visual Impairment: Partially Limited Hearing Ability: Normal Meat Passer Required: No Beliefs That Will Affect Care: None marital status: Current Living Situation: Spouse current occupational status: retired Other Information That Helps Us Care for You: No Feels Safe at Home: Yes Safety Concerns: Feels Safe At This Time Childhood Exposure to Second-Hand Smoke: No Dental Care, Regularly: Yes Physical Activity Frequency: 1-2 Times per Week Physical Activity Frequency Comment: walking Seatbelt Use: always Sunscreen Use: Yes Assistive Devices: None Physical Exam Physical Exam: Patient is alert and oriented Heart regular rhythm Lungs clear Results & Data Results & Data ([facility]) Vital Signs (Past 12 Hours) Vital Signs Temp Pulse Resp BP Pulse Ox O2 Del Method 01/25/22 06:27 36.7 C 84 20 137/79 98 Room Air
[2022-01-25] MEDS ORDERED: HYDROmorphone INJ 2 MG/ML SYR/VIAL ONE (08:01)
[2022-01-25] MEDS ORDERED: KETAMINE 50 MG/5 ML SYRINGE ONE (08:02)
[2022-01-25] MEDS ORDERED: GLYCOPYRROLATE 0.2 MG/ML VIAL ONE (08:34)
[2022-01-25] MEDS ORDERED: DEXAMETHASONE SOD INJ 4 MG/ML VIAL ONE (08:34)
[2022-01-25] MEDS ORDERED: LIDOCAINE 2% MPF LOCAL 5 ML VIAL INFIL ONE (08:34)
[2022-01-25] MEDS ORDERED: ROCURONIUM BROMIDE 10 MG/ML 5 ML VIAL IV ONE (08:34)
[2022-01-25] MEDS ORDERED: PROPOFOL IV EMULSION 10 MG/ML 20 ML VIAL IV ONE (08:34)
[2022-01-25] MEDS ORDERED: NEOSTIGMINE METHYLSULFATE 1 MG/ML 10ML VIAL ONE (08:34)
[2022-01-25] MEDS ORDERED: ONDANSETRON INJ 2 MG/ML 2 ML VIAL ONE (08:34)
[2022-01-25] MEDS ORDERED: FLOSEAL HEMOSTATIC MATRIX 10ML TOP ONE (08:39)
--- NOTE | 2022-01-25 08:54 | Operative Report ---
Post Operative Report Pre & Post Diagnosis Operation Date: 01/25/22 07:45 Pre-Op Diagnosis: Cervical spinal stenosis with radiculopathy Post-Op Diagnosis: Same I identified the patient and participated in the time-out.: Yes Procedure Operation Date: 01/25/22 07:45 Actual Procedures #1 anterior cervical discectomy with bilateral foraminotomies C5-C6. #2 anterior cervical arthrodesis C5-C6. #3 placement 7 mm spiral cage with I factor C5-C6. #4 placement of choice spine lead cargoman plate across C5-C6. Surgeon Bandar Chapin, Platform Architect Mitch Greco Estimated Blood Loss 10 Findings Consistent with Post-Op Diagnosis Specimens None Indications This is a 66-year-old female who presents above-mentioned diagnosis after failed course of nonoperative care she is here for surgical intervention. Description of Procedure Patient was met with identified informed consent obtained. Patient was then taken to the operative suite underwent a patient placed in supine position Temo table with head Jefferson band head saw operator. All bony prominences well-padded eyes inspected to ensure no external pressure placed upon the. This point anterior cervical spine was prepped and draped no sterile fashion. The assistance of fluoroscopy identify the C5-C6 disc base and a transverse incision was placed along the right anterior aspect of the cervical spine overlying this region. Blunt dissection was then carried out down to and exposing the anterior cervical spine from C5-C6. Self-retaining retractors placed. Then formed a complete discectomy of C5-C6 out to the uncovertebral joints bilaterally. [place] distracting pins were utilized to assist in visualization. Removed all posterior annular fibers longitudinal ligament and bilateral foraminotomies performed. Endplates were then burred to subcortical bleeding bone and a 7 mm spiral cage filled with I factor tapped the position. Distracting apparatus was removed. And a basilar plate was then placed with fluoroscopic assistance. The incision was then copiously irrigated explored to ensure no damage to surrounding structures or remaining bleeding. 10 round YADI drain inserted. The incision was then closed with 2 Vicryl in the fascia and 4 Monocryl for fascial closure. Steri-Strip sterile dressing placed. Patient waken taken PACU stable condition. Please note spinal cord monitoring was utilized at the procedure no changes noted. Lastly Mitch Greco was present at the entire surgeon while the patient positioning complex portions of the surgery and fascial closure. I attest to the content of the Intraoperative Record and any orders documented therein. Any exceptions are noted below.
--- NOTE | 2022-01-25 10:03 | Anesthesiology Progress Note ---
Date of Service January 25, 2022 Anesthesia Post Procedure Vital Signs Vital Signs: Temp Pulse Resp BP Pulse Ox O2 Del Method O2 Flow Rate 01/25/22 09:35 90 18 114/90 99 Oxymask 3 01/25/22 09:55 97.5 F L 83 19 124/85 100 Oxymask 2 01/25/22 09:45 79 24 129/77 99 Oxymask 3 01/25/22 09:25 98 H 19 162/104 H 98 Oxymask 3 01/25/22 09:18 96.8 F L 96 H 16 172/97 H 96 Oxymask 5 01/25/22 06:27 98.1 F 84 20 137/79 98 Room Air Pain Intensity Medial Back: Pain Intensity: 5 Transfer of Care Handoff Completed per policy Notes Mental Status: alert / awake / arousable and participated in evaluation Patient Amnestic to Procedure: Yes Nausea / Vomiting: adequately controlled Pain: adequately controlled Airway Patency, RR, SpO2: stable & adequate BP & HR: stable & adequate Hydration State: stable & adequate Anesthetic Complications: no major complications apparent and Pt Satisfied with anesthetic care
[2022-01-25] MEDS ORDERED: SOD PHOSPHATE/SOD BIPHOSPHATE ENEMA 132 ML BTL PR PRN (11:18)
[2022-01-25] MEDS ORDERED: LORazepam 0.5 MG in SYRINGE 0.25 ML IV PRN (11:18)
[2022-01-25] MEDS ORDERED: hydrOXYzine HCl 25 MG TAB PO PRN (11:18)
[2022-01-25] MEDS ORDERED: HYDROmorphone INJ 0.5 MG/0.5 ML SYR IV PRN (11:18)
[2022-01-25] MEDS ORDERED: lisinopril 5 MG TAB PO SCH (11:18)
[2022-01-25] MEDS ORDERED: ALUMINUM/MAGNESIUM SUSP 30 ML UDC PO PRN (11:18)
[2022-01-25] MEDS ORDERED: LORazepam 0.5 MG TAB PO PRN (11:18)
[2022-01-25] MEDS ORDERED: traZODone HCL 50 MG TAB PO PRN (11:18)
[2022-01-25] MEDS ORDERED: METOCLOPRAMIDE HCL INJ 5 MG/ML 2 ML VIAL IV PRN (11:18)
[2022-01-25] MEDS ORDERED: NALOXONE HCL 0.4 MG/1 ML VIAL/CARP IV PRN (11:18)
[2022-01-25] MEDS ORDERED: MAGNESIUM HYDROXIDE SUSP 30 ML UDC PO PRN (11:18)
[2022-01-25] MEDS ORDERED: ALBUTEROL HFA 8 GM INHALER INH PRN (11:18)
[2022-01-25] MEDS ORDERED: PROMETHAZINE HCL 12.5 MG in SODIUM CHLORIDE 0.9% 50 ML IV PRN (11:18)
[2022-01-25] MEDS ORDERED: FAMOTIDINE 20 MG TAB PO PRN (11:18)
[2022-01-25] MEDS ORDERED: traMADol HCL 50 MG TABLET PO PRN (11:18)
[2022-01-25] MEDS ORDERED: ONDANSETRON 4 MG OD TAB PO PRN (11:18)
[2022-01-25] MEDS ORDERED: ACETAMINOPHEN 1,000 MG/100 ML VIAL IV PRN (11:18)
[2022-01-25] MEDS ORDERED: bisacodyL 10 MG SUPP PR PRN (11:18)
[2022-01-25] MEDS ORDERED: dexAMETHasone 8 MG in SYRINGE 0 ML IV PRN (11:18)
[2022-01-25] MEDS ORDERED: diphenhydrAMINE Capsule 25 MG CAP PO PRN (11:18)
[2022-01-25] MEDS ORDERED: RACEPINEPHRINE 2.25% NEBU SOLN 0.5 ML VIAL INH PRN (11:18)
[2022-01-25] MEDS ORDERED: HYDROmorphone INJ 1 MG/ML SYRINGE IV PRN (11:18)
[2022-01-25] MEDS ORDERED: RIZATRIPTAN BENZOATE 10 MG TAB PO PRN (11:18)
[2022-01-25] MEDS: ALLERGY Noted to ORDERED Medication SCH ×2 (11:25→11:30)
--- NOTE | 2022-01-25 11:40 | History & Physical Report ---
Date of Service January 25, 2022 Assessment & Plan Admission and Anticipated Discharge Date Admission Date: January 25, 2022 History of Present Illness Primary Care Provider: May Haynes MD Enedelia Duarte is a 66-year-old female with a past medical history significant for hypertension, hyperlipidemia, hypothyroidism, GERD/PUD, anxiety, depression, asthma, and history of migraine headaches who is being admitted today for C5/C6 ACDF with Dr. Chapin. Hospitalist group was consulted for post-operative medication management. Today, she is POD#0 and feels well. Denies fever/chills, weakness, chest pain, palpitations, shortness of breath, cough, orthopnea, abdominal pain, nausea, vomiting. Allergies Allergy/AdvReac Type Severity Reaction Status Date / Time Sulfa (Sulfonamide Allergy Intermediate HIVES Verified 01/25/22 06:22 Antibiotics) Penicillins Allergy Mild SWELLING Verified 01/25/22 06:22 pregabalin Allergy Mild SWELLING Verified 01/25/22 06:22 codeine AdvReac Mild PROJECTILE Verified 01/25/22 06:22 VOMITING Home Medications Medication Instructions Recorded Confirmed Type mometasone 50 mcg/actuation nasal 2 sprays intranasal HS 12/04/18 01/25/22 History spray rizatriptan 10 mg tablet (Maxalt) 10 mg PO UD PRN Migraine Headache 03/11/19 01/25/22 History loratadine 10 mg tablet 10 mg PO HS 06/09/19 01/25/22 History hydroxyzine HCl 10 mg tablet 10 mg PO TID PRN itching #30 tabs 12/27/19 01/25/22 Rx Medical Marijuana 1 dose buccal TID PRN Pain 06/12/20 01/25/22 History trazodone 50 mg tablet 50 mg PO HS PRN Sleep #90 tabs 04/19/21 01/25/22 Rx levothyroxine 50 mcg tablet 50 mcg PO QAM #90 tabs 08/16/21 01/25/22 Rx lisinopril 5 mg tablet 5 mg PO QAM #90 tabs 08/22/21 01/25/22 Rx simvastatin 20 mg tablet 20 mg PO HS #90 tabs 08/23/21 01/25/22 Rx potassium citrate 10 mEq (1,080 10 meq PO BID #180 tabs 09/04/21 01/25/22 Rx mg) tablet,extended release albuterol sulfate 90 mcg/actuation 2 puff inhalation Q4H PRN 10/22/21 01/25/22 Rx aerosol inhaler (ProAir HFA) shortness of breath or wheezing #8.5 grams metoprolol succinate 25 mg 25 mg PO QAM 01/02/22 01/25/22 History tablet,extended release 24 hr (Toprol XL) pantoprazole 40 mg tablet,delayed 40 mg PO BID 01/02/22 01/25/22 History release sucralfate 1 gram tablet 1 g PO UD 01/02/22 01/25/22 History venlafaxine 150 mg 150 mg PO HS 01/02/22 01/25/22 History capsule,extended release 24 hr Past Med/Surg History Medical History Anxiety and depression Asthma Stable GERD (gastroesophageal reflux disease) Hiatal hernia History of COVID-19 Covid positive (home test 12/31/21) Symptoms at time: fever, congestion, fatigue, body aches, sore throat > resolved Hx of migraines Hyperlipidemia Hypertension Hypothyroidism 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 No daily pain or problems with jaw ROM Osteoporosis Peptic ulcer disease Controlled with PPI Spinal stenosis Tachyarrhythmia Takes metoprolol Follows with [facility] cardi[place] Surgical History Fusion of spine lumbar x3 H/O hand surgery right x2 History of colonoscopy History of esophagogastroduodenoscopy (EGD) History of knee replacement procedure of left knee History of knee replacement procedure of right knee History of repair of rotator cuff right Hx of appendectomy Hx of arthroscopic knee surgery x9 on bilat knees Hx of LASIK Hx of sinus surgery Hx of tonsillectomy Hx of total hysterectomy 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 Toussaint Family History Mother Breast cancer Father Myocardial infarction Grandmother (Paternal) FHx: diabetes mellitus Grandmother (Maternal) FHx: diabetes mellitus Other Colon cancer Denies family history of Ovarian cancer Prostate cancer Social History (Reviewed 01/18/22 @ 07:42 by RAVI Benavides Smoking Status: Never smoker Second Hand Exposure: No; Do You Dip or Chew Tobacco: No; Tobacco Cessation Education Requested by Patient: No Hx Alcohol Use: No Hx Substance Use: No Preferred Language: Amharic Communication Ability: Effective Visual Impairment: Partially Limited Hearing Ability: Normal Academic Coach Required: No Beliefs That Will Affect Care: None marital status: Current Living Situation: Spouse current occupational status: retired Other Information That Helps Us Care for You: No Feels Safe at Home: Yes Safety Concerns: Feels Safe At This Time Childhood Exposure to Second-Hand Smoke: No Dental Care, Regularly: Yes Physical Activity Frequency: 1-2 Times per Week Physical Activity Frequency Comment: walking Seatbelt Use: always Sunscreen Use: Yes Assistive Devices: None Results & Data Results & Data ([facility]) Vital Signs (Past 12 Hours) Vital Signs Temp Pulse Resp BP Pulse Ox Pulse Ox O2 Del Method 01/25/22 11:18 97 01/25/22 11:01 36.6 C 86 18 137/86 97 Nasal Cannula 01/25/22 10:30 Nasal Cannula 01/25/22 10:30 36.9 C 77 18 139/87 99 Nasal Cannula 01/25/22 09:35 90 18 114/90 99 Oxymask 01/25/22 10:15 36.4 C L 84 22 133/78 99 Oxymask 01/25/22 10:05 36.4 C L 86 24 148/80 H 100 Oxymask 01/25/22 09:55 36.4 C L 83 19 124/85 100 Oxymask 01/25/22 09:45 79 24 129/77 99 Oxymask 01/25/22 09:25 98 H 19 162/104 H 98 Oxymask 01/25/22 09:18 36.0 C L 96 H 16 172/97 H 96 Oxymask 01/25/22 06:27 36.7 C 84 20 137/79 98 Room Air O2 Del Method O2 Flow Rate O2 Flow Rate 01/25/22 11:18 Nasal Cannula 2 01/25/22 11:01 2 01/25/22 10:30 2 01/25/22 10:30 2 01/25/22 09:35 3 01/25/22 10:15 2 01/25/22 10:05 2 01/25/22 09:55 2 01/25/22 09:45 3 01/25/22 09:25 3 01/25/22 09:18 5 01/25/22 06:27 Code Status & VTE Plan VTE Prophylaxis Plan VTE Prophylaxis will be ordered: Yes PG Care Time/CCT Total # of Minutes Spent Total Time Spent with Patient: Total time spent is greater than 50% in coordination of care (as documented) at patient's floor/unit and/or counseling patient: Coding
--- NOTE | 2022-01-25 11:47 | Hospitalist Consultation ---
Date of Consultation January 25, 2022 Assessment & Plan (1) Cervical stenosis of spinal canal: - POD#0. EBL 10 cc. No complications. 1 YADI drain placed. - Pain/ABX/IVF/diet/drain management/transfusion needs/activity per primary team - Rescue Narcan ordered for over sedation PRN - VTE prophylaxis per primary service- SCDs in place - CBC and BMP in AM. - Baseline renal function: 1.0 on 01/18. 37 years s/p right kidney donation - Baseline Hgb: 11.9 on 01/18 (2) Chronic kidney disease, stage 3a: - s/p right kidney donation. Cr baseline 1.0-1.04. Stable on pre-op labs one week ago. - BMP in AM. - Hold lisinopril until POD#2 given possibility of interaction with anesthesia which could cause hypotension hwoever if patient is signifcantly hypertensive POD#1 and renal function at baseline, okay to restart lisinopril tomorrow. (3) Hypothyroidism: - Continue levothyroxine 50 mcg daily. (4) Anemia: - Hgb 11.9, at baseline, History fo iron supplementation however patient felt ill when taking these, has since d/c'd. - Monitor H/H on AM CBC. EBL 100 cc. - Hx of PUD in 2019 due to Etocolac she was taking for arthritic pain. No epigastric pain or s/s UGI bleed today. (5) PSVT (paroxysmal supraventricular tachycardia): - Continue metoprolol 25 mg daily. - No chest pain or palpitations today. (6) Hypertension: - Hold lisinopril until POD#2 given possibility of interaction with anesthesia which could cause hypotension hwoever if patient is signifcantly hypertensive POD#1 and renal function at baseline, okay to restart lisinopril tomorrow. - Continue metoprolol as above for history of tachycardia. (7) Anxiety and depression: - Continue Effexor 150 mg HS, trazodone 50 mg HS as needed for insomnia. - Continue hydroxyzine 10 mg TID as needed. (8) Hyperlipidemia: - Continue statin. (9) GERD without esophagitis: - Hx of PUD in 2019 due to Etocolac she was taking for arthritic pain. Now c ontrolled on PPI as needed and carafate. Will make PPI BID scheduled and Pepcid once daily while receiving IV steroids for spinal surgery. Continue carafate. (10) Asthma, mild intermittent: - Albuterol inhaler prn. Mometasone 2 sprays HS. Loratidine HS. - No recent exacerbations. Last used one month ago. - Still weaning off O2 after urgery. (11) Migraine: - Rizatriptan ordered prn x2 dose max daily. - No complaints of migraine headache today. Plan - Admitted obs me/surg per primary team. - SCDS ordered for VTE ppx. - Full Code. Supervising Physician Co-Signing Physician Notes I personally saw and examined the patient. I verified all spring points and agree with Candi Andrea PA-C with the following exceptions and/or additions: 66 year old femal POD#0 cervical spinal fusion. Discussed patient medical condit ions and medications with the patient. Will review patient with post op labs in AM. History of Present Illness Reason for Consultation: post op medication management Requesting Physician: Bandar Chapin DO Attending Physician: Bandar Chapin DO History of Present Illness Enedelia Duarte is a 66-year-old female with a past medical history significant for CKD3, single kidney s/p donation 37 years ago, hypertension, hyperlipidemia, hypothyroidism, GERD/PUD, anxiety, depression, asthma, and history of migraine headaches who is being admitted today for C5/C6 ACDF with Dr. Chapin. Hospitalist group was consulted for post-operative medication management. Today, she is POD#0 and feels well. Denies fever/chills, weakness, chest pain, palpitations, shortness of breath, cough, orthopnea, abdominal pain, nausea, vomiting. She has some post-operative pain and has received pain medication recently which she says is helping. Resting comfortably in bed with partner at bedside. Allergies Allergy/AdvReac Type Severity Reaction Status Date / Time Sulfa (Sulfonamide Allergy Intermediate HIVES Verified 01/25/22 06:22 Antibiotics) Penicillins Allergy Mild SWELLING Verified 01/25/22 06:22 pregabalin Allergy Mild SWELLING Verified 01/25/22 06:22 codeine AdvReac Mild PROJECTILE Verified 01/25/22 06:22 VOMITING Home Medications Medication Instructions Recorded Confirmed Type mometasone 50 mcg/actuation nasal 2 sprays intranasal HS 12/04/18 01/25/22 History spray rizatriptan 10 mg tablet (Maxalt) 10 mg PO UD PRN Migraine Headache 03/11/19 01/25/22 History loratadine 10 mg tablet 10 mg PO HS 06/09/19 01/25/22 History hydroxyzine HCl 10 mg tablet 10 mg PO TID PRN itching #30 tabs 12/27/19 01/25/22 Rx Medical Marijuana 1 dose buccal TID PRN Pain 06/12/20 01/25/22 History trazodone 50 mg tablet 50 mg PO HS PRN Sleep #90 tabs 04/19/21 01/25/22 Rx levothyroxine 50 mcg tablet 50 mcg PO QAM #90 tabs 08/16/21 01/25/22 Rx lisinopril 5 mg tablet 5 mg PO QAM #90 tabs 08/22/21 01/25/22 Rx simvastatin 20 mg tablet 20 mg PO HS #90 tabs 08/23/21 01/25/22 Rx potassium citrate 10 mEq (1,080 10 meq PO BID #180 tabs 09/04/21 01/25/22 Rx mg) tablet,extended release albuterol sulfate 90 mcg/actuation 2 puff inhalation Q4H PRN 10/22/21 01/25/22 Rx aerosol inhaler (ProAir HFA) shortness of breath or wheezing #8.5 grams metoprolol succinate 25 mg 25 mg PO QAM 01/02/22 01/25/22 History tablet,extended release 24 hr (Toprol XL) pantoprazole 40 mg tablet,delayed 40 mg PO BID 01/02/22 01/25/22 History release sucralfate 1 gram tablet 1 g PO UD 01/02/22 01/25/22 History venlafaxine 150 mg 150 mg PO HS 01/02/22 01/25/22 History capsule,extended release 24 hr oxycodone 5 mg tablet 5 mg PO Q6H PRN pain, severe #20 01/25/22 Rx tabs tramadol 50 mg tablet 50 mg PO Q6H PRN pain, moderate 01/25/22 Rx #20 tabs Patient History Medical History Anxiety and depression Asthma Stable GERD (gastroesophageal reflux disease) Hiatal hernia History of COVID-19 Covid positive (home test 12/31/21) Symptoms at time: fever, congestion, fatigue, body aches, sore throat > resolved Hx of migraines Hyperlipidemia Hypertension Hypothyroidism 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 Beliefs That Will Affect Care: None marital status: Current Living Situation: Spouse current occupational status: retired Other Information That Helps Us Care for You: No Feels Safe at Home: Yes Safety Concerns: Feels Safe At This Time Childhood Exposure to Second-Hand Smoke: No Dental Care, Regularly: Yes Physical Activity Frequency: 1-2 Times per Week Physical Activity Frequency Comment: walking Seatbelt Use: always Sunscreen Use: Yes Assistive Devices: None Review of Systems Review of Systems: Constitutional: No fever/chills, weakness, fatigue, myalgias, anorexia, night sweats Eyes: No diplopia, no worsening or blurred vision ENT: normal hearing, no trouble swallowing Respiratory: No cough, sputum, dyspnea at rest or on exertion Cardiovascular: No chest pain, tightness or palpitations Abdomen: No pain, nausea, vomiting, diarrhea or constipation : Denies dysuria, hematuria, increased urgency/frequency, urinary retention Musculoskeletal: minor neck pain around surgical site; No joint pain, calf pain, swelling Neurologic: No weakness, numbness/tingling, or balance problems Psychiatric: No anxiety or depression Skin: No rash or itch Physical Exam Physical Exam: General: awake, alert, no apparent distress Head: Normocephalic, atraumatic ENT: PERRL, EOMI, no pharyngeal exudate, mucous membranes moist Chest: Clear to auscultation, no adventitious breath sounds Cardiac: Regular rate and rhythm, no murmur, no JVD, normal peripheral pulses, good capillary refill Abdominal: NABS x 4 quadrants, soft, nontender to palpation, no rebound, guarding or tenderness Extremities: Normal inspection, no peripheral edema or erythema, calfs nont aj to palpation Psych: Normal mood and affect Neuro: AAO x 3, strength intact bilaterally and rated 5/5, no motor deficits, speech is clear, no peripheral sensory deficits Skin: no rash or erythema Results & Data Results & Data ([facility]) Vital Signs (Past 12 Hours) Vital Signs Temp Pulse Resp BP Pulse Ox Pulse Ox O2 Del Method 01/25/22 11:30 36.7 C 75 18 129/84 98 Nasal Cannula 01/25/22 11:18 97 01/25/22 11:01 36.6 C 86 18 137/86 97 Nasal Cannula 01/25/22 10:30 Nasal Cannula 01/25/22 10:30 36.9 C 77 18 139/87 99 Nasal Cannula 01/25/22 09:35 90 18 114/90 99 Oxymask 01/25/22 10:15 36.4 C L 84 22 133/78 99 Oxymask 01/25/22 10:05 36.4 C L 86 24 148/80 H 100 Oxymask 01/25/22 09:55 36.4 C L 83 19 124/85 100 Oxymask 01/25/22 09:45 79 24 129/77 99 Oxymask 01/25/22 09:25 98 H 19 162/104 H 98 Oxymask 01/25/22 09:18 36.0 C L 96 H 16 172/97 H 96 Oxymask 01/25/22 06:27 36.7 C 84 20 137/79 98 Room Air O2 Del Method O2 Flow Rate O2 Flow Rate 01/25/22 11:30 2 01/25/22 11:18 Nasal Cannula 2 01/25/22 11:01 2 01/25/22 10:30 2 01/25/22 10:30 2 01/25/22 09:35 3 01/25/22 10:15 2 01/25/22 10:05 2 01/25/22 09:55 2 01/25/22 09:45 3 01/25/22 09:25 3 01/25/22 09:18 5 01/25/22 06:27 PG Care Time/CCT Total # of Minutes Spent Total Time Spent with Patient: Total time spent is greater than 50% in coordination of care (as documented) at patient's floor/unit and/or counseling patient: Coding Level of Care Code 71585 Office/OBS Consult Lvl 4 Diagnoses Cervical stenosis of spinal canal M48.02 Chronic kidney disease, stage 3a N18.31 Hypothyroidism E03.9 Anemia D64.9 PSVT (paroxysmal supraventricular tachycardia) I47.1 Hypertension I10 Anxiety and depression F41.9; F32.9 Hyperlipidemia E78.5 GERD without esophagitis K21.9 Asthma, mild intermittent J45.20 Migraine G43.909
[2022-01-25] MEDS: oxyCODONE HCL IR 5 MG TAB (IMMEDIATE RELEASE) PO PRN ×3 (11:48→21:08)
[2022-01-25] MEDS: LACTATED RINGER'S 1,000 ML IV SCH ×2 (11:53→23:00)
[2022-01-25] MEDS ORDERED: MEDICAL MARIJUANA PO PRN (11:58)
--- NOTE | 2022-01-25 12:28 | Fluoroscopy Report ---
FL cervical 2-3V CLINICAL HISTORY: C5-C6 ACDF COMPARISON STUDY: CT of the neck October 28, 2014. FLUOROSCOPY TIME: 12 seconds. FLUOROSCOPIC IMAGES: 2 FINDINGS: Fluoroscopy was provided during C5-C6 anterior discectomy and fusion. Surgical drain is in place. Endotracheal tube is partially imaged. Hardware is intact. IMPRESSION: Fluoroscopy provided during C5-C6 anterior discectomy and fusion. ACT 112: Negative or not required by law. Electronically signed by: Joe Ramesh M.D. 01/25/2022 12:27 PM
[2022-01-25] MEDS: dexAMETHasone 6 MG in SYRINGE 0 ML IV SCH (12:47)
[2022-01-25] MEDS: SUCRALFATE 1 GM TAB PO SCH ×3 (13:27→21:04)
[2022-01-25] MEDS: CLINDAMYCIN/D5W 600 MG/50 ML BAG IV SCH ×2 (16:25→23:02)
[2022-01-25] MEDS: ACETAMINOPHEN 500 MG TAB PO PRN (16:31)
[2022-01-25] MEDS ORDERED: FLUTICASONE PROPIONATE NA SPR 16 GM BTL SCH (21:00)
[2022-01-25] MEDS ORDERED: SIMVASTATIN 20 MG TAB PO SCH (21:00)
[2022-01-25] MEDS ORDERED: LORATADINE 10 MG TAB PO SCH (21:00)
[2022-01-25] MEDS ORDERED: DOCUSATE SODIUM/SENNA 50/8.6MG TAB PO SCH (21:00)
[2022-01-25] MEDS ORDERED: VENLAFAXINE HCL XR 150 MG CAPXR PO SCH (21:00)
[2022-01-25] MEDS: POTASSIUM CITRATE 10 MEQ TAB PO SCH (21:02)
[2022-01-25] MEDS: PANTOprazole 40 MG TAB PO SCH (21:03)
[2022-01-26] MEDS: ACETAMINOPHEN 500 MG TAB PO PRN (01:48)
[2022-01-26] MEDS: POLYETHYLENE (MIRALAX) 17 GM PACK PO SCH ×2 (05:47→12:32)
[2022-01-26] MEDS ORDERED: LEVOTHYROXINE SODIUM 50 MCG TABLET PO SCH (06:30)
[2022-01-26 07:02] LABS: Basophils # (auto) 0.01 K/uL (0-0.2); Basophils % (auto) 0.1 %; Hematocrit (blood only) 31.8 % (34.1-44.9); Hemoglobin 10.5 g/dl (12.0-16.0); Immature Granulocytes % (auto) 0.7 %; Lymphocytes # (auto) 1.04 K/uL (1.2-3.4); Lymphocytes % (auto) 7.7 %; Mean Corpuscular Hemoglobin 31.3 pg (25.0-34.0); Mean Corpuscular Volume 94.9 fL (80.0-100.0); Monocytes # (auto) 0.74 K/uL (0.24-0.82); Monocytes % (auto) 5.5 %; Neutrophils # (auto) 11.65 K/uL (1.4-6.5); Platelet Count 276 K/uL (130-400); RDW Standard Deviation 45.4 fL (36.4-46.3); Red Blood Count 3.35 M/uL (3.93-5.22); White Blood Count 13.54 K/ul (4.8-10.8)
--- NOTE | 2022-01-26 07:21 | Orthopedic Progress Note ---
Date of Service January 26, 2022 Assessment & Plan (1) Cervical stenosis of spinal canal: Plan: Patient is doing well postop day #1. Her pain is controlled she is tolerating oral intake. At this time we are able to send her home. She is lift nothing heavier than 5 to 7 pounds she is to call her when she is up and walking she may remove it for skin care and meals we will see her in the office approximately 2 weeks or sooner if she develops any increased pain fevers chills or drainage from the incision. Admission and Anticipated Discharge Date Admission Date: January 25, 2022 Subjective Patient is seen postop day #1. She is doing well this morning. She is swallowing without difficulties. The pain in her arm is significantly improved. She is using her collar. She is tolerating oral intake without difficulties. She denies any other numbness, tingling, or paresthesias. Physical Exam Physical Exam: On exam her dressing is clean dry and intact. YADI drain is in place and holding suction. She had 20 cc of drainage total. Her strength and sensation are both intact her gait is stable. Results & Data ([facility]) Vital Signs (Past 12 Hours) Vital Signs Temp Pulse Resp BP Pulse Ox O2 Del Method O2 Flow Rate 01/26/22 05:51 147/90 H 01/26/22 05:50 36.5 C 82 17 159/118 H 99 Room Air 01/26/22 03:59 69 16 95 Nasal Cannula 2 01/26/22 00:01 71 16 98 Room Air 01/26/22 04:04 36.5 C 90 14 126/82 98 Nasal Cannula 2 01/26/22 01:49 151/99 H 01/26/22 01:42 36.5 C 85 16 95 Room Air 01/25/22 23:32 36.4 C L 81 16 138/87 94 Room Air 01/25/22 21:28 36.5 C 91 H 20 161/98 H 97 Nasal Cannula 2 01/25/22 19:28 36.8 C 83 15 150/80 H 99 Nasal Cannula 2 FiO2 01/26/22 05:51 01/26/22 05:50 01/26/22 03:59 01/26/22 00:01 21 01/26/22 04:04 01/26/22 01:49 01/26/22 01:42 01/25/22 23:32 01/25/22 21:28 01/25/22 19:28
--- NOTE | 2022-01-26 07:23 | Discharge Summary ---
Date of Service January 26, 2022 Discharge Data Consultations 01/25/22 11:18 Consult Hospitalist Routine Procedures Performed Operation Date: 01/25/22 07:45 Actual Procedures p C5-C6 Anterior Cervical Discectomy and Fusion; Spinal Cord Monitoring(Not Applicable) - Bandar Chapin DO Hospital Course (1) Cervical stenosis of spinal canal: Patient is 66-year-old female with history physical examination and radiographic findings consistent with the above-mentioned diagnosis. This reason she is brought to the operating room on 01/24/2022. She undergone anterior cervical discectomy and fusion performed by Dr. Chapin under general anesthesia. She left the operating room with a YADI drain in place and is transferred PACU in stable condition. She was then transferred to the orthopedic floor. Throughout her hospital course her calves remained supple nontender dressings clean dry and intact. On postop day 1 she was deemed safe for home discharge. She was to change dressing once daily until there is no drainage. She is to maintain her collar except for meals and for skin care. We will see her in the office in approximately 2 weeks or sooner if she develops any increased pain, fever, chills, drainage from the incision.
[2022-01-26] MEDS: SUCRALFATE 1 GM TAB PO SCH ×2 (08:13→12:32)
[2022-01-26 08:33] LABS: BUN Creatinine Ratio 12.5 (10-20); Calcium 9.1 mg/dl (8.5-10.1); Est GFR (African American) 78.8 ml/min
[2022-01-26] MEDS ORDERED: METOPROLOL SUCC 25MG EXT REL TAB PO SCH (09:00)
[2022-01-26] MEDS ORDERED: FAMOTIDINE 20 MG TAB PO SCH (09:00)
[2022-01-26] MEDS: oxyCODONE HCL IR 5 MG TAB (IMMEDIATE RELEASE) PO PRN ×2 (09:42→14:51)
[2022-01-26] MEDS: dexAMETHasone 6 MG in SYRINGE 0 ML IV SCH (09:44)
[2022-01-26] MEDS: PANTOprazole 40 MG TAB PO SCH (09:44)
[2022-01-26] MEDS: POTASSIUM CITRATE 10 MEQ TAB PO SCH (09:44)
[2022-01-27] MEDS ORDERED: lisinopril 5 MG TAB PO SCH (09:00)
== END 2022-01-26 15:31 | disposition home or self-care (01) | DRG 472 ==
LOC: ASU 06:03 → 3E 08:58 → INTOOBSV 08:58
DX: M54.12 Radiculopathy, cervical region; Z96.653 Presence of artificial knee joint, bilateral; Z79.899 Other long term (current) drug therapy; Z88.2 Allergy status to sulfonamides; Z79.890 Hormone replacement therapy; M48.02 Spinal stenosis, cervical region; Z90.5 Acquired absence of kidney; J45.20 Mild intermittent asthma, uncomplicated; D64.9 Anemia, unspecified; I12.9 Hypertensive chronic kidney disease with stage 1 through stage 4 chronic kidney disease, or unspecified chronic kidney disease; Z88.5 Allergy status to narcotic agent; Z86.16 Personal history of COVID-19; Z88.0 Allergy status to penicillin; E03.9 Hypothyroidism, unspecified; I47.1 Supraventricular tachycardia; F41.8 Other specified anxiety disorders; Z98.1 Arthrodesis status; E78.5 Hyperlipidemia, unspecified; N18.31 Chronic kidney disease, stage 3a